=== PATIENT | female | born 1935 | race Caucasian/White ===

== ENCOUNTER 2018-05-29 17:50 | Inpatient (IN) | payer MEDICARE ==
[2018-05-29] MEDS ORDERED: SODIUM CHLORIDE 0.9% 1,000 ML IV STA (18:09)
[2018-05-29] MEDS ORDERED: SODIUM CHLORIDE 0.9% 500 ML 500 ML IV STA (18:09)
--- NOTE | 2018-05-29 18:29 | ED ---
Recheck HPI - General Chief Complaint: Recheck/Abnormal Lab/Rx Stated Complaint: Abnormal labs Time Seen by Provider: 05/29/18 17:52 Source: EMS, RN notes reviewed, old records reviewed Mode of arrival: EMS Limitations: no limitations - History of Present Illness Initial Comments: This is an 83-year-old female the ER for evaluation she was essay for evaluation of severe weakness. Patient also presented for abnormal outpatient lab test. He had visiting physicians test lab tests and told him that showed low hemoglobin of 4. This is been a chronic issue for this patient. Patient's medical history long calm.. She denies any complaints aside from weakness decreased appetite and anorexia Complaint: abnormal lab (hemoglobin) -: unknown Returns Today for: Called Because of Abnormal Lab/Test Symptoms Since Prior Visit: no new symptoms Associated Symptoms: none Treatments Prior to Arrival: other (none) - Related Data Home Medications Medication Instructions Recorded Confirmed ALPRAZolam [Xanax] 0.25 mg PO TID 05/29/18 05/29/18 Aspirin [[place] Aspirin EC] 81 mg PO DAILY 05/29/18 05/29/18 Atorvastatin [Lipitor] 80 mg PO HS 05/29/18 05/29/18 Citalopram Hydrobromide 40 mg PO DAILY 05/29/18 05/29/18 [Citalopram HBr] Diphenox-Atrop 2.5-0.025 mg 1 tab PO TID 05/29/18 05/29/18 [Lomotil] Donepezil [Aricept] 5 mg PO HS 05/29/18 05/29/18 Donepezil [Aricept] 10 mg PO HS 05/29/18 05/29/18 Ipratropium-Albuterol Nebulize 3 ml INHALATION RT-QID PRN 05/29/18 05/29/18 [Duoneb 0.5 mg-3 mg/3 ml Soln] Isosorbide Mononitrate ER [Imdur] 30 mg PO DAILY 05/29/18 05/29/18 Lisinopril-Hctz 10-12.5 mg 1 tab PO DAILY 05/29/18 05/29/18 [Zestoretic 10-12.5] Megestrol [Megace] 40 mg PO BID 05/29/18 05/29/18 Metoprolol Succinate (ER) [Toprol 25 mg PO DAILY 05/29/18 05/29/18 Xl] Pantoprazole Sodium [Protonix] 40 mg PO DAILY 05/29/18 05/29/18 Primidone [Mysoline] 50 mg PO TID 05/29/18 05/29/18 amLODIPine [Norvasc] 10 mg PO DAILY 05/29/18 05/29/18 predniSONE 5 mg PO DAILY 05/29/18 05/29/18 Allergies Allergy/AdvReac Type Severity Reaction Status Date / Time codeine Allergy Unknown Verified 05/29/18 18:27 Review of Systems ROS Statement: Those systems with pertinent positive or pertinent negative responses have been documented in the HPI. ROS Other: All systems not noted in ROS Statement are negative. Past Medical History History of Any Multi-Drug Resistant Organisms: None Reported Past Psychological History: No Psychological Hx Reported Smoking Status: Never smoker Past Alcohol Use History: None Reported Past Drug Use History: None Reported General Exam Limitations: no limitations General appearance: alert, lethargic, in distress Head exam: Present: atraumatic, normocephalic, normal inspection Eye exam: Present: normal appearance, PERRL, EOMI. Absent: scleral icterus, conjunctival injection, periorbital swelling ENT exam: Present: normal exam, mucous membranes moist Neck exam: Present: normal inspection. Absent: tenderness, meningismus, lymphadenopathy Respiratory exam: Present: normal lung sounds bilaterally. Absent: respiratory distress, wheezes, rales, rhonchi, stridor Cardiovascular Exam: Present: regular rate, normal rhythm, normal heart sounds. Absent: systolic murmur, diastolic murmur, rubs, gallop, clicks GI/Abdominal exam: Present: soft, normal bowel sounds. Absent: distended, tenderness, guarding, rebound, rigid Extremities exam: Present: normal inspection, full ROM, normal capillary refill. Absent: tenderness, pedal edema, joint swelling, calf tenderness Back exam: Present: normal inspection Neurological exam: Present: alert, oriented X3, CN II-XII intact Psychiatric exam: Present: normal affect, normal mood Skin exam: Present: warm, dry, intact, normal color. Absent: rash Course Vital Signs 05/29/18 05/29/18 17:52 18:13 Temperature 97.8 F Pulse Rate 68 Respiratory 15 16 Rate Blood Pressure 111/39 O2 Sat by Pulse 98 Oximetry - Reevaluation(s) Reevaluation #1: 05/29/18 19:08 Medical record is reviewed Reevaluation #2: 05/29/18 19:08 Patient has significant anemia probably from chronic diseases she denies vomiting blood or blood in her stool. We'll admit for significant transfusion Medical Decision Making - Medical Decision Making 83 female the ER for evaluation, significant anemia we'll admit for transfusion - Lab Data Result diagrams: 05/29/18 18:00 05/29/18 18:00 Lab Results 05/29/18 05/29/18 05/29/18 Range/Units 18:00 18:00 18:00 WBC 9.5 (3.8-10.6) k/uL RBC 1.50 L (3.80-5.40) m/uL Hgb 4.2 L* (11.4-16.0) gm/dL Hct 15.5 L* (34.0-46.0) % MCV 103.4 H (80.0-100.0) fL MCH 28.1 (25.0-35.0) pg MCHC 27.1 L (31.0-37.0) g/dL RDW 16.9 H (11.5-15.5) % Plt Count 400 (150-450) k/uL Neutrophils % 92 % Lymphocytes % 3 % Monocytes % 3 % Eosinophils % 0 % Basophils % 0 % Neutrophils # 8.8 H (1.3-7.7) k/uL Lymphocytes # 0.3 L (1.0-4.8) k/uL Monocytes # 0.3 (0-1.0) k/uL Eosinophils # 0.0 (0-0.7) k/uL Basophils # 0.0 (0-0.2) k/uL Hypochromasia Marked Anisocytosis Slight Macrocytosis Moderate PT (9.0-12.0) sec INR (<1.2) APTT (22.0-30.0) sec Sodium 142 (137-145) mmol/L Potassium 4.4 (3.5-5.1) mmol/L Chloride 119 H (98-107) mmol/L Carbon Dioxide 20 L (22-30) mmol/L Anion Gap 3 mmol/L BUN 60 H (7-17) mg/dL Creatinine 1.59 H (0.52-1.04) mg/dL Est GFR (CKD-EPI)AfAm 35 (>60 ml/min/1.73 sqM) Est GFR (CKD-EPI)NonAf 30 (>60 ml/min/1.73 sqM) Glucose 124 H (74-99) mg/dL Plasma Lactic Acid [place] (0.7-2.0) mmol/L Calcium 7.6 L (8.4-10.2) mg/dL Magnesium 2.6 H (1.6-2.3) mg/dL Total Bilirubin 0.2 (0.2-1.3) mg/dL AST 51 H (14-36) U/L ALT 52 (9-52) U/L Alkaline Phosphatase 78 (38-126) U/L Total Creatine Kinase 437 H (30-135) U/L Total Protein 4.4 L (6.3-8.2) g/dL Albumin 2.0 L (3.5-5.0) g/dL Lipase 130 (23-300) U/L 05/29/18 05/29/18 Range/Units 18:00 18:00 WBC (3.8-10.6) k/uL RBC (3.80-5.40) m/uL Hgb (11.4-16.0) gm/dL Hct (34.0-46.0) % MCV (80.0-100.0) fL MCH (25.0-35.0) pg MCHC (31.0-37.0) g/dL RDW (11.5-15.5) % Plt Count (150-450) k/uL Neutrophils % % Lymphocytes % % Monocytes % % Eosinophils % % Basophils % % Neutrophils # (1.3-7.7) k/uL Lymphocytes # (1.0-4.8) k/uL Monocytes # (0-1.0) k/uL Eosinophils # (0-0.7) k/uL Basophils # (0-0.2) k/uL Hypochromasia Anisocytosis Macrocytosis PT 10.7 (9.0-12.0) sec INR 1.0 (<1.2) APTT 19.3 L (22.0-30.0) sec Sodium (137-145) mmol/L Potassium (3.5-5.1) mmol/L Chloride (98-107) mmol/L Carbon Dioxide (22-30) mmol/L Anion Gap mmol/L BUN (7-17) mg/dL Creatinine (0.52-1.04) mg/dL Est GFR (CKD-EPI)AfAm (>60 ml/min/1.73 sqM) Est GFR (CKD-EPI)NonAf (>60 ml/min/1.73 sqM) Glucose (74-99) mg/dL Plasma Lactic Acid [place] 1.3 (0.7-2.0) mmol/L Calcium (8.4-10.2) mg/dL Magnesium (1.6-2.3) mg/dL Total Bilirubin (0.2-1.3) mg/dL AST (14-36) U/L ALT (9-52) U/L Alkaline Phosphatase (38-126) U/L Total Creatine Kinase (30-135) U/L Total Protein (6.3-8.2) g/dL Albumin (3.5-5.0) g/dL Lipase (23-300) U/L Disposition Clinical Impression: Anemia Disposition: ADMITTED IP TO THIS HOSP Condition: Serious Is patient prescribed a controlled substance at d/c from ED?: No Referrals: Walter Saul MD [Primary Care Provider] - 1-2 days
[2018-05-29 18:31] LABS: Calcium 7.6 mg/dL (8.4-10.2); Magnesium 2.6 mg/dL (1.6-2.3); Potassium 4.4 mmol/L (3.5-5.1); Total Bilirubin 0.2 mg/dL (0.2-1.3); Total Protein 4.4 g/dL (6.3-8.2)
[2018-05-29 18:32] LABS: Anisocytosis Slight; Basophils % (A) 0 %; Eosinophils % (A) 0 %; Hypochromasia Marked; Lymphocytes # (A) 0.3 k/uL (1.0-4.8); Lymphocytes % (A) 3 %; MCH 28.1 pg (25.0-35.0); MCHC 27.1 g/dL (31.0-37.0); MCV 103.4 fL (80.0-100.0); Macrocytosis Moderate; Mean Platelet Volume 6.8; Monocytes # (A) 0.3 k/uL (0-1.0); Monocytes % (A) 3 %; Neutrophils # (A) 8.8 k/uL (1.3-7.7); Neutrophils % (A) 92 %; Platelet Count 400 k/uL (150-450); RDW 16.9 % (11.5-15.5); WBC 9.5 k/uL (3.8-10.6)
[2018-05-29 18:37] LABS: HCT 15.5 % (34.0-46.0); HGB 4.2 gm/dL (11.4-16.0)
[2018-05-29 18:42] LABS: Prothrombin Time 10.7 sec (9.0-12.0)
[2018-05-29 18:45] LABS: Creatine Kinase MB 3.9 ng/mL (0.0-2.4)
[2018-05-29 18:48] LABS: Partial Thromboplastin Time 19.3 sec (22.0-30.0)
[2018-05-29 19:23] LABS: Troponin I 0.056 ng/mL (0.000-0.034)
--- NOTE | 2018-05-29 21:07 | P.HPIM ---
History of Present Illness H&P Date: 05/29/18 The patient is an 83 yo F with PMH of emphysema, dementia, chronic anemia (on chronic iron supplementation), breast and cervical ca 15 years ago s/p treatment , chronic tremors, and HLD was brought in to the ED by her family due to lethargy and appearing pale. As per the daughters at the bedside, the patient was able to ambulate with some assistance up until a month ago. She then had a gradual decline in her functional status and has essentially been bedbound over the past few weeks (and has developed a sacral ulcer). She previously had mild dementia but has also progressed with worsening mental status and now only oriented to place. Family also noted that the patient appeared paler than usual. They endorsed a long-standing history of anemia and that the patient used to get transfusions every month up until a year ago when she missed some appointments and then lost follow-up. Family noted that the cause of the anemia was never fully realized despite a comprehensive workup. The family otherwise denied the patient endorsing any complaints. The patient noted that she doesn't feel well but was free of active complaints and denied any chest pain, SOB, nausea, vomiting, abdominal pain, or vaginal bleeding. The daughters endorsed chronically black stools which they attributed to the iron supplementation but denied noticing any vaginal bleeding. In the ED, the patient underwent a comprehensive w/u with CBC showing Hgb 4.2, Hct 15.5 and patelets 400. Cr was 1.59, BUN 60, and Troponin 0.056. In the ED the patient received bolus of IVFs and 3 U of pRBCs were ordered. Review of Systems Pertinent positives and negatives as discussed in HPI, a complete review of systems was performed and all other systems are negative. Past Medical History History of Any Multi-Drug Resistant Organisms: None Reported Past Psychological History: No Psychological Hx Reported Smoking Status: Never smoker Past Alcohol Use History: None Reported Past Drug Use History: None Reported Medications and Allergies Home Medications Medication Instructions Recorded Confirmed Type ALPRAZolam [Xanax] 0.25 mg PO TID 05/29/18 05/29/18 History Aspirin [[place] Aspirin EC] 81 mg PO DAILY 05/29/18 05/29/18 History Atorvastatin [Lipitor] 80 mg PO HS 05/29/18 05/29/18 History Citalopram Hydrobromide 40 mg PO DAILY 05/29/18 05/29/18 History [Citalopram HBr] Diphenox-Atrop 2.5-0.025 mg 1 tab PO TID 05/29/18 05/29/18 History [Lomotil] Donepezil [Aricept] 5 mg PO HS 05/29/18 05/29/18 History Donepezil [Aricept] 10 mg PO HS 05/29/18 05/29/18 History Ipratropium-Albuterol Nebulize 3 ml INHALATION RT-QID PRN 05/29/18 05/29/18 History [Duoneb 0.5 mg-3 mg/3 ml Soln] Isosorbide Mononitrate ER [Imdur] 30 mg PO DAILY 05/29/18 05/29/18 History Lisinopril-Hctz 10-12.5 mg 1 tab PO DAILY 05/29/18 05/29/18 History [Zestoretic 10-12.5] Megestrol [Megace] 40 mg PO BID 05/29/18 05/29/18 History Metoprolol Succinate (ER) [Toprol 25 mg PO DAILY 05/29/18 05/29/18 History Xl] Pantoprazole Sodium [Protonix] 40 mg PO DAILY 05/29/18 05/29/18 History Primidone [Mysoline] 50 mg PO TID 05/29/18 05/29/18 History amLODIPine [Norvasc] 10 mg PO DAILY 05/29/18 05/29/18 History predniSONE 5 mg PO DAILY 05/29/18 05/29/18 History Allergies Allergy/AdvReac Type Severity Reaction Status Date / Time codeine Allergy Unknown Verified 05/29/18 18:27 Physical Exam Vitals: Vital Signs Temp Pulse Resp BP Pulse Ox 05/29/18 20:15 67 16 119/50 100 05/29/18 18:13 16 05/29/18 18:00 111/39 90 L 05/29/18 17:52 97.8 F 68 15 111/39 98 Intake and Output 05/29/18 05/29/18 05/29/18 06:59 14:59 22:59 Other: Weight 38.102 kg General: [pale elderly F], [no distress], [appears at stated age], [cachectic] Derm: thin skin w/ multiple areas of echymosis over arms and legs, R posterior leg 3-4 cm area of oval hyperkeratosis w/ flaking, no erythema or warmth Head: [atraumatic], [normocephalic], [symmetric] Eyes: [EOMI], [no lid lag], [anicteric sclera], [pupils equal round reactive to light], pale conjunctiva ENT: [Nose and ears atraumatic], [no thrush], [no pharyngeal erythema] Neck: [No thyromegaly], [no cervical lymphadenopathy], [trachea midline], [ supple] Mouth: [no lip lesion], [mucus membranes dry] Cardiovascular: [S1S2 reg], [no murmur], [positive posterior tibial pulse bilateral], [no edema] Lungs: [CTA bilateral], [no rhonchi, no rales] , [no accessory muscle use] Abdominal: [soft], [ nontender to palpation], [no guarding], [no appreciable organomegaly], [normal bowel sounds] Ext: [muscle strength 4 out of 5 in all 4 extremities grossly], [no contractures ] Neuro: [ CN II-XI grossly intact], moving all extremities Psych: [Awake, believes she is in [facility], able to recognize and name daughters at bedside] Results CBC & Chem 7: 05/29/18 18:00 05/29/18 18:00 Labs: Abnormal Lab Results - Last 24 Hours (Table) 05/29/18 05/29/18 05/29/18 Range/Units 18:00 18:00 18:00 RBC 1.50 L (3.80-5.40) m/uL Hgb 4.2 L* (11.4-16.0) gm/dL Hct 15.5 L* (34.0-46.0) % MCV 103.4 H (80.0-100.0) fL MCHC 27.1 L (31.0-37.0) g/dL RDW 16.9 H (11.5-15.5) % Neutrophils # 8.8 H (1.3-7.7) k/uL Lymphocytes # 0.3 L (1.0-4.8) k/uL APTT (22.0-30.0) sec Chloride 119 H (98-107) mmol/L Carbon Dioxide 20 L (22-30) mmol/L BUN 60 H (7-17) mg/dL Creatinine 1.59 H (0.52-1.04) mg/dL Glucose 124 H (74-99) mg/dL Calcium 7.6 L (8.4-10.2) mg/dL Magnesium 2.6 H (1.6-2.3) mg/dL AST 51 H (14-36) U/L Total Creatine Kinase 437 H (30-135) U/L CK-MB (CK-2) 3.9 H (0.0-2.4) ng/mL Troponin I 0.056 H* (0.000-0.034) ng/mL Total Protein 4.4 L (6.3-8.2) g/dL Albumin 2.0 L (3.5-5.0) g/dL Crossmatch 05/29/18 05/29/18 Range/Units 18:00 18:00 RBC (3.80-5.40) m/uL Hgb (11.4-16.0) gm/dL Hct (34.0-46.0) % MCV (80.0-100.0) fL MCHC (31.0-37.0) g/dL RDW (11.5-15.5) % Neutrophils # (1.3-7.7) k/uL Lymphocytes # (1.0-4.8) k/uL APTT 19.3 L (22.0-30.0) sec Chloride (98-107) mmol/L Carbon Dioxide (22-30) mmol/L BUN (7-17) mg/dL Creatinine (0.52-1.04) mg/dL Glucose (74-99) mg/dL Calcium (8.4-10.2) mg/dL Magnesium (1.6-2.3) mg/dL AST (14-36) U/L Total Creatine Kinase (30-135) U/L CK-MB (CK-2) (0.0-2.4) ng/mL Troponin I (0.000-0.034) ng/mL Total Protein (6.3-8.2) g/dL Albumin (3.5-5.0) g/dL Crossmatch See Detail Assessment and Plan Plan: Severe macrocytic anemia, unknown etiology -In light of hx of chronic anemia and multiple transfusions, will obtain records from PMD in am (Dr Olivarez) -Pt ordered for 3 U of pRBCs. Will f/u CBC post-transfusions -Will hold off on further w/u pending records Cachexia -Dietary consult -High calorie diet -C/w Megestrol Troponin elevation -Likely secondary to severe anemia. Will obtain EKG. OUSMANE, pre-renal -Likely due to decreased oral intake and dehydration -C/w IVFs. Dietary consult. -F/u BMP Dementia -C/w Aricept COPD -Duonebs prn HTN -Currently normotensive. Will hold off. Resume as warranted. HLD -C/w Lipitor 80 mg ?CAD -- patient follows w/ Cardiology -Hold off on Aspirin and Toprol for now. No history of stents or cardiac surgery as per family. DVT//GI prophylaxis - IPCDs - No indication for GI prophylaxis The patient is admitted with an anticipated greater than 2 midnight stay for evaluation of severe anemia Surrogate decision-maker: Daughters, CODE STATUS: Full-code Discussed with: Daughters, Anticipated discharge date: 05/31/[address]: Home A total of 60 minutes was spent on the care of this complex patient more than 50 % of the time was spent in counseling and care coordination.
[2018-05-30 00:10] LABS: Anisocytosis Slight; Basophils % (A) 0 %; Eosinophils # (A) 0.1 k/uL (0-0.7); Eosinophils % (A) 1 %; Hypochromasia Marked; Lymphocytes # (A) 0.4 k/uL (1.0-4.8); Lymphocytes % (A) 4 %; MCH 29.8 pg (25.0-35.0); MCV 99.3 fL (80.0-100.0); Macrocytosis Slight; Mean Platelet Volume 6.9; Monocytes # (A) 0.3 k/uL (0-1.0); Monocytes % (A) 3 %; Neutrophils # (A) 9.3 k/uL (1.3-7.7); Neutrophils % (A) 90 %; Platelet Count 359 k/uL (150-450); Poikilocytosis Moderate; RBC 1.97 m/uL (3.80-5.40); RDW 16.1 % (11.5-15.5); WBC 10.3 k/uL (3.8-10.6)
[2018-05-30 00:19] LABS: HCT 19.5 % (34.0-46.0); HGB 5.9 gm/dL (11.4-16.0)
[2018-05-30 08:55] LABS: Basophils % (A) 0 %; Eosinophils # (A) 0.1 k/uL (0-0.7); Eosinophils % (A) 0 %; HCT 34.1 % (34.0-46.0); Hypochromasia Marked; Lymphocytes # (A) 0.3 k/uL (1.0-4.8); Lymphocytes % (A) 3 %; MCH 29.8 pg (25.0-35.0); MCV 96.1 fL (80.0-100.0); Mean Platelet Volume 7.1; Monocytes # (A) 0.3 k/uL (0-1.0); Monocytes % (A) 3 %; Neutrophils # (A) 10.3 k/uL (1.3-7.7); Neutrophils % (A) 93 %; Platelet Count 307 k/uL (150-450); Poikilocytosis Marked; RBC 3.55 m/uL (3.80-5.40); RDW 15.8 % (11.5-15.5); WBC 11.1 k/uL (3.8-10.6)
[2018-05-30 09:04] LABS: HGB 10.6 gm/dL (11.4-16.0)
[2018-05-30 09:12] LABS: Albumin 2.4 g/dL (3.5-5.0); Calcium 7.9 mg/dL (8.4-10.2); Magnesium 2.7 mg/dL (1.6-2.3); Phosphorus 4.2 mg/dL (2.5-4.5); Potassium 4.5 mmol/L (3.5-5.1); Total Bilirubin 0.7 mg/dL (0.2-1.3); Total Protein 4.9 g/dL (6.3-8.2)
[2018-05-30 10:24] LABS: Reticulocyte % 4.4 % (0.5-2.0)
[2018-05-30 11:28] VITALS: BMI 16.4
[2018-05-30 12:48] LABS: Appearance,Urine Cloudy (Clear); Bacteria,Urine Rare /hpf; Bilirubin,Urine Negative (Negative); Blood,Urine Trace (Negative); Color,Urine Yellow; Glucose,Urine (UA) Negative (Negative); Hyaline Casts,Urine 4 /lpf (0-2); Ketones,Urine Negative (Negative); Leukocyte Esterase,Urine Large (Negative); Mucus,Urine Rare /hpf; Nitrite,Urine Negative (Negative); Protein,Urine Trace (Negative); RBC,Urine 5 /hpf (0-5); Specific Gravity,Urine 1.013 (1.001-1.035); Squamous Epithelial Cell,Urine 16 /hpf (0-4); Urobilinogen,Urine <2.0 mg/dL (<2.0); WBC,Urine 28 /hpf (0-5)
--- NOTE | 2018-05-30 12:52 | CDI ---
Documentation Clarification Form Date: 05/30/2018 12:10:12 PM From: Shayy Panchal RN, CCDS Admit Date: 05/29/2018 7:09:00 PM Patient Name: Mitzi Lamar Visit Number: [id number] Discharge Date: ATTENTION: The Clinical Documentation Specialists (CDI) and [facility] Coding Staff appreciate your assistance in clarifying documentation. Please respond to the clarification below the line at the bottom and electronically sign. The CDI & [facility] Coding staff will review the response and follow-up if needed. Please note: Queries are made part of the Legal Health Record. If you have any questions, please contact the author of this message via ITS. Dr. Neri Mancini A Sacral ulcer was documented in the H/P and additional documentation is needed from the attending to accurately reflect the patient condition. History/Risk Factors: Dementia, Chronic anemia, Clinical Indicators: Your H/P has noted that patient decline in her functional status she has essentially been bedbound over the past few weeks and developed a sacral ulcer. She is noted to be incontinent and wear a diaper. She has cachexia with BMI 16.4 Location: Coccyx Wound description: [place], erythema hyperpigmentation, per nursing wound assessment stage II Treatment: Consults: Dietary consult Magic cups BID, monitor intake Wound care per protocol Elements for accurate and compliant documentation of an ulcer: *The location/laterality of the ulcer *Etiology (decubitus/pressure, diabetic, PVD) *Stage I-IV, Unstageable, Suspected Deep Tissue Injury (To the deepest stage ) *If the ulcer was present at admission (POA) or occurred after admission In your professional opinion, can you please clarify the diagnosis, location, laterality and whether present on admission (POA): Stage 1 Pressure/Decubitus Ulcer (intact skin, non-blanching redness of local area) Stage 2 Pressure/Decubitus Ulcer (Partial thickness, loss of dermis, pink wound bed) Stage 3 Pressure/Decubitus Ulcer (Full thickness tissue loss) Stage 4 Pressure/Decubitus Ulcer (Full thickness tissue loss with exposed bone, tendon, or muscle. May have slough or eschar present) Unstageable Other condition, please specify Unable to determine Please indicate etiology of pressure ulcer (if known). (Last Revision: February 2017) Sacral decubitus ulcer, unstageable, present on admission [facility]
--- NOTE | 2018-05-30 13:10 | CDI ---
Documentation Clarification Form Date: 05/30/18 From: Shayy Panchal RN, CCDS Admit Date: 05/29/2018 7:09:00 PM Patient Name: Mitzi Lamar Visit Number: [id number] Discharge Date: ATTENTION: The Clinical Documentation Specialists (CDI) and [facility] Coding Staff appreciate your assistance in clarifying documentation. Please respond to the clarification below the line at the bottom and electronically sign. The CDI & [facility] Coding staff will review the response and follow-up if needed. Please note: Queries are made part of the Legal Health Record. If you have any questions, please contact the author of this message via ITS. Dr. Neri Mancini Malnutrition has been documented in the dietitian consult and further clarification and documentation from the attending is needed. History/Risk Factors: Anemia, Dementia Clinical Indicators: Patient present with low Hgb 4.2 on admission and complaints of lethargy, weakness and poor appetite for 1-3 months. Her physical appearance is underweight with orbital, temporal fat loss Labs: Albumin 2.4 /Total Protein: 4.9 Current BMI: 16.4 Insufficient energy intake: Yes Weight Loss: Yes16 % BW in 2 months Loss of subcutaneous fat: Yes Decreased hand internal combustion engineer strength: Yes Treatment: Dietary Consult: Yes; diagnosis: malnutrition severe, acute Supplements: Magic cups BID Monitor PO intake Lab monitoring: In your professional opinion, can you please clarify if these findings signify one of the following conditions? Mild Protein-Calorie Malnutrition Moderate Protein-Calorie Malnutrition Severe Protein-Calorie Malnutrition Other condition, please specify Unable to determine (Last Revision: August 2017) Severe protein calorie malnutrition MTDD
--- NOTE | 2018-05-30 13:13 | P.CONS ---
History of Present Illness - Reason for Consult Consult date: 05/30/18 severe anemia Requesting physician: Quinten Carranza - Chief Complaint weakness, sob, hgb 4.2 - History of Present Illness Ms Lamar is a pleasant white female referred to us for pancytopenia, initially in 2011. She has had predominantly a normochromic, normocytic anemia with a mild thrombocyopenia and some leukopenia. We have lab work dating back to February 2011. At that time her hemoglobin was 10.2 with an MCV of 88.4. RDW was 14.5. Platelet count was 125 and the WBC was 5.3. She has not been back in our office since 2014. She presented to hospital via ambulance for increasing debility, on admission found to have hemoglobin of 4.2, she was transfused and an initial work-up completed. Her current hemoglobin is stable. 10.6. There is no overt signs of bleeding noted. Review of Systems ROS unobtainable: due to mental status Past Medical History Past Medical History: Cancer Additional Past Medical History / Comment(s): Frequent blood transfusions, chronic anemia, breast ca , right mastectomy History of Any Multi-Drug Resistant Organisms: None Reported Past Surgical History: Breast Surgery Additional Past Surgical History / Comment(s): rt mastectomy Past Anesthesia/Blood Transfusion Reactions: No Reported Reaction Past Psychological History: No Psychological Hx Reported Smoking Status: Never smoker Past Alcohol Use History: None Reported Past Drug Use History: None Reported - Past Family History Father Family Medical History: No Reported History Medications and Allergies Home Medications Medication Instructions Recorded Confirmed Type ALPRAZolam [Xanax] 0.25 mg PO TID 05/29/18 05/29/18 History Aspirin [[place] Aspirin EC] 81 mg PO DAILY 05/29/18 05/29/18 History Atorvastatin [Lipitor] 80 mg PO HS 05/29/18 05/29/18 History Citalopram Hydrobromide 40 mg PO DAILY 05/29/18 05/29/18 History [Citalopram HBr] Diphenox-Atrop 2.5-0.025 mg 1 tab PO TID 05/29/18 05/29/18 History [Lomotil] Donepezil [Aricept] 5 mg PO HS 05/29/18 05/29/18 History Donepezil [Aricept] 10 mg PO HS 05/29/18 05/29/18 History Ipratropium-Albuterol Nebulize 3 ml INHALATION RT-QID PRN 05/29/18 05/29/18 History [Duoneb 0.5 mg-3 mg/3 ml Soln] Isosorbide Mononitrate ER [Imdur] 30 mg PO DAILY 05/29/18 05/29/18 History Lisinopril-Hctz 10-12.5 mg 1 tab PO DAILY 05/29/18 05/29/18 History [Zestoretic 10-12.5] Megestrol [Megace] 40 mg PO BID 05/29/18 05/29/18 History Metoprolol Succinate (ER) [Toprol 25 mg PO DAILY 05/29/18 05/29/18 History Xl] Pantoprazole Sodium [Protonix] 40 mg PO DAILY 05/29/18 05/29/18 History Primidone [Mysoline] 50 mg PO TID 05/29/18 05/29/18 History amLODIPine [Norvasc] 10 mg PO DAILY 05/29/18 05/29/18 History predniSONE 5 mg PO DAILY 05/29/18 05/29/18 History Allergies Allergy/AdvReac Type Severity Reaction Status Date / Time codeine Allergy Unknown Verified 05/29/18 18:27 Physical Exam Vitals: Vital Signs Temp Pulse Pulse Resp BP BP Pulse Ox 05/30/18 05:56 98.1 F 65 144/62 05/30/18 05:24 98.3 F 60 20 146/65 100 05/30/18 03:43 98.1 F 68 135/78 05/30/18 03:13 98.2 F 65 132/78 05/30/18 02:59 98.3 F 64 128/82 05/30/18 02:49 98.1 F 62 126/78 05/30/18 00:35 98.7 F 59 L 12 124/48 100 05/29/18 23:46 98.3 F 61 16 135/49 99 05/29/18 22:20 98.3 F 130/46 100 05/29/18 21:30 98.4 F 121/44 100 05/29/18 21:15 98.6 F 61 16 121/44 100 05/29/18 21:00 98.3 F 82 22 157/69 100 05/29/18 20:15 67 16 119/50 100 05/29/18 18:13 16 05/29/18 18:00 111/39 90 L 05/29/18 17:52 97.8 F 68 15 111/39 98 Intake and Output 05/29/18 05/30/18 05/30/18 22:59 06:59 14:59 Intake Total 0 930 Balance 0 930 Intake: Blood Product 0 930 Rc As-1 Unit 310 [id number] Rc Pheresis 2 As3 Unit 0 310 [id number] Rc Pheresis As-3 Unit 310 [id number] Other: Voiding Method Diaper Incontinent # Voids 2 Weight 38.102 kg 38.102 kg - Constitutional Chronically ill weak General appearance: mild distress, thin - EENT Eyes: poor dentition ENT: hard of hearing, NA/AT, normal oropharynx - Neck Neck: rigidity - Respiratory Respiratory: bilateral: diminished, wheezing - Cardiovascular Rhythm: regularly irregular - Gastrointestinal General gastrointestinal: decreased bowel sounds, soft, tenderness - Integumentary sacral wound Integumentary: pale, ulcer - Neurologic inconsistent responses and following of commands - Musculoskeletal unable to ambulate Musculoskeletal: generalized weakness Results CBC & Chem 7: 05/30/18 07:17 05/30/18 07:17 Labs: Abnormal Lab Results - Last 24 Hours (Table) 05/29/18 05/29/18 05/29/18 Range/Units 18:00 18:00 18:00 WBC (3.8-10.6) k/uL RBC 1.50 L (3.80-5.40) m/uL Hgb 4.2 L* (11.4-16.0) gm/dL Hct 15.5 L* (34.0-46.0) % MCV 103.4 H (80.0-100.0) fL MCHC 27.1 L (31.0-37.0) g/dL RDW 16.9 H (11.5-15.5) % Neutrophils # 8.8 H (1.3-7.7) k/uL Lymphocytes # 0.3 L (1.0-4.8) k/uL Retic Count (0.5-2.0) % APTT (22.0-30.0) sec Chloride 119 H (98-107) mmol/L Carbon Dioxide 20 L (22-30) mmol/L BUN 60 H (7-17) mg/dL Creatinine 1.59 H (0.52-1.04) mg/dL Glucose 124 H (74-99) mg/dL Calcium 7.6 L (8.4-10.2) mg/dL Magnesium 2.6 H (1.6-2.3) mg/dL AST 51 H (14-36) U/L Total Creatine Kinase 437 H (30-135) U/L CK-MB (CK-2) 3.9 H (0.0-2.4) ng/mL Troponin I 0.056 H* (0.000-0.034) ng/mL Total Protein 4.4 L (6.3-8.2) g/dL Albumin 2.0 L (3.5-5.0) g/dL Crossmatch 05/29/18 05/29/18 05/30/18 Range/Units 18:00 18:00 00:00 WBC (3.8-10.6) k/uL RBC 1.97 L (3.80-5.40) m/uL Hgb 5.9 L* D (11.4-16.0) gm/dL Hct 19.5 L* (34.0-46.0) % MCV (80.0-100.0) fL MCHC 30.0 L (31.0-37.0) g/dL RDW 16.1 H (11.5-15.5) % Neutrophils # 9.3 H (1.3-7.7) k/uL Lymphocytes # 0.4 L (1.0-4.8) k/uL Retic Count (0.5-2.0) % APTT 19.3 L (22.0-30.0) sec Chloride (98-107) mmol/L Carbon Dioxide (22-30) mmol/L BUN (7-17) mg/dL Creatinine (0.52-1.04) mg/dL Glucose (74-99) mg/dL Calcium (8.4-10.2) mg/dL Magnesium (1.6-2.3) mg/dL AST (14-36) U/L Total Creatine Kinase (30-135) U/L CK-MB (CK-2) (0.0-2.4) ng/mL Troponin I (0.000-0.034) ng/mL Total Protein (6.3-8.2) g/dL Albumin (3.5-5.0) g/dL Crossmatch See Detail 05/30/18 05/30/18 05/30/18 Range/Units 07:17 07:17 07:17 WBC 11.1 H (3.8-10.6) k/uL RBC 3.55 L (3.80-5.40) m/uL Hgb 10.6 L D (11.4-16.0) gm/dL Hct (34.0-46.0) % MCV (80.0-100.0) fL MCHC (31.0-37.0) g/dL RDW 15.8 H (11.5-15.5) % Neutrophils # 10.3 H (1.3-7.7) k/uL Lymphocytes # 0.3 L (1.0-4.8) k/uL Retic Count (0.5-2.0) % APTT (22.0-30.0) sec Chloride 117 H (98-107) mmol/L Carbon Dioxide (22-30) mmol/L BUN 53 H (7-17) mg/dL Creatinine 1.60 H (0.52-1.04) mg/dL Glucose (74-99) mg/dL Calcium 7.9 L (8.4-10.2) mg/dL Magnesium 2.7 H (1.6-2.3) mg/dL AST 53 H (14-36) U/L Total Creatine Kinase (30-135) U/L CK-MB (CK-2) (0.0-2.4) ng/mL Troponin I 0.100 H* (0.000-0.034) ng/mL Total Protein 4.9 L (6.3-8.2) g/dL Albumin 2.4 L (3.5-5.0) g/dL Crossmatch 05/30/18 Range/Units 07:17 WBC (3.8-10.6) k/uL RBC (3.80-5.40) m/uL Hgb (11.4-16.0) gm/dL Hct (34.0-46.0) % MCV (80.0-100.0) fL MCHC (31.0-37.0) g/dL RDW (11.5-15.5) % Neutrophils # (1.3-7.7) k/uL Lymphocytes # (1.0-4.8) k/uL Retic Count 4.4 H (0.5-2.0) % APTT (22.0-30.0) sec Chloride (98-107) mmol/L Carbon Dioxide (22-30) mmol/L BUN (7-17) mg/dL Creatinine (0.52-1.04) mg/dL Glucose (74-99) mg/dL Calcium (8.4-10.2) mg/dL Magnesium (1.6-2.3) mg/dL AST (14-36) U/L Total Creatine Kinase (30-135) U/L CK-MB (CK-2) (0.0-2.4) ng/mL Troponin I (0.000-0.034) ng/mL Total Protein (6.3-8.2) g/dL Albumin (3.5-5.0) g/dL Crossmatch Assessment and Plan Plan: Assessment and recommendations: 1. Severe macrocytic anemia: - no intervention today as her hgb has recovered 2. Persistent Debility - component of failure to thrive underlying Dementia 3. Hx: Pancytopenia: known hx mild splenomegaly. - The differential, with the negative w/u includes marrow suppression from medication and/or early MDS and/or mild splenic sequestration. No further intervention would be needed in either of these situations as long remained counts are in a safe range. Recommendations: - I will further work-up anemia, as likely a nutritional, failure to thrive component. - I rec further work-up for underlying acute inflammation with singleton cultures ( Chest Xray, BCx2, UA/C+S), will defer to attending - Will follow and supp if needed.
[2018-05-30] MEDS ORDERED: SODIUM CHLORIDE 0.45% 1,000 ML IV SCH (13:30)
--- NOTE | 2018-05-30 14:35 | P.PN ---
Subjective The chart was reviewed. Spoke with patient's daughter. Patient has a history of long-standing anemia with iron infusions. No particular etiology provided. Last infusion was about a year ago. Patient also has history of chronic diarrhea apparently no reason was found. She is history of advanced COPD with chronic prednisone. History of dementia. Over the last 1 month patient showing some progressive decline in her mentation is fatigue generalized weakness and not feeling well. Chart review showed hemoglobin of 4. Elevated troponin. Elevated creatinine. Per nursing staff patient had decreased urine output urinating only once. We' ll check postvoiding residual was 347. Patient herself only states that she's feeling short of breath but denies any focal pain or discomfort. Review of system was attempted but limited since patient seems very fatigue and slow to answer Objective - Vital Signs Vital signs: Vital Signs Temp 98.1 F 05/30/18 05:56 Pulse 65 05/30/18 05:56 Resp 20 05/30/18 05:24 BP 144/62 05/30/18 05:56 Pulse Ox 100 05/30/18 05:24 Intake & Output 05/29/18 05/30/18 05/30/18 18:59 06:59 18:59 Intake Total 930 100 Balance 930 100 Weight 38.102 kg 38.102 kg Intake: Blood Product 930 Rc As-1 Unit 310 [id number] Rc Pheresis 2 As3 Unit 310 [id number] Rc Pheresis As-3 Unit 310 [id number] Other 100 Other: Voiding Method Diaper Incontinent # Voids 2 2 - Exam Vital Signs: I have reviewed the vital signs. GENERAL: Malnourished frail old lady, no apparent distress, appears tired Eyes: PERRL, extraoculry movements intact, clear conjunctiva Head: : Atraumatic external nose and ears, oropharyngeal mucosa is moist without lesions or exudates Neck: Symmetric, trachea midline, No thyromegaly, no masses or neck vain pulsation, no neck rigidity CVS: +S1/S2, No murmurs or gallops. Peripheral pulses 2+ and equal in all extremities. RESP: Unlabored respiratory effort. Breath sounds are diminished but they are completely absent in the right base few crackles in the left base Abdomen: Bowel sounds present in all 4 quadrants, Soft to palpation, Nontender/ Nondistended, No hepatosplenomegaly, no hernias or masses, no CVA tnderness Musculoskeletal: Extremities w/o deformity, No cyanosis or clubbing, no joint swelling Skin: Warm, Dry. No rashes or lesions Neuro: child nutrition director II-XII grossly intact, motor strenght 5/5 i upper and lower extremities appear to be somewhat weaker but no clonus no Babinski DTRs are diminished Psych: Awake, Alert, & Oriented (AAO) x3 - Labs CBC & Chem 7: 05/30/18 07:17 05/30/18 07:17 Labs: Abnormal Lab Results - Last 24 Hours (Table) 05/29/18 05/29/18 05/29/18 Range/Units 18:00 18:00 18:00 WBC (3.8-10.6) k/uL RBC 1.50 L (3.80-5.40) m/uL Hgb 4.2 L* (11.4-16.0) gm/dL Hct 15.5 L* (34.0-46.0) % MCV 103.4 H (80.0-100.0) fL MCHC 27.1 L (31.0-37.0) g/dL RDW 16.9 H (11.5-15.5) % Neutrophils # 8.8 H (1.3-7.7) k/uL Lymphocytes # 0.3 L (1.0-4.8) k/uL Retic Count (0.5-2.0) % APTT (22.0-30.0) sec Chloride 119 H (98-107) mmol/L Carbon Dioxide 20 L (22-30) mmol/L BUN 60 H (7-17) mg/dL Creatinine 1.59 H (0.52-1.04) mg/dL Glucose 124 H (74-99) mg/dL Calcium 7.6 L (8.4-10.2) mg/dL Magnesium 2.6 H (1.6-2.3) mg/dL AST 51 H (14-36) U/L Total Creatine Kinase 437 H (30-135) U/L CK-MB (CK-2) 3.9 H (0.0-2.4) ng/mL Troponin I 0.056 H* (0.000-0.034) ng/mL Total Protein 4.4 L (6.3-8.2) g/dL Albumin 2.0 L (3.5-5.0) g/dL Urine Appearance (Clear) Urine Protein (Negative) Urine Blood (Negative) Ur Leukocyte Esterase (Negative) Urine WBC (0-5) /hpf Ur Squamous Epith Cells (0-4) /hpf Urine Bacteria (None) /hpf Hyaline Casts (0-2) /lpf Urine Mucus (None) /hpf Crossmatch 05/29/18 05/29/18 05/30/18 Range/Units 18:00 18:00 00:00 WBC (3.8-10.6) k/uL RBC 1.97 L (3.80-5.40) m/uL Hgb 5.9 L* D (11.4-16.0) gm/dL Hct 19.5 L* (34.0-46.0) % MCV (80.0-100.0) fL MCHC 30.0 L (31.0-37.0) g/dL RDW 16.1 H (11.5-15.5) % Neutrophils # 9.3 H (1.3-7.7) k/uL Lymphocytes # 0.4 L (1.0-4.8) k/uL Retic Count (0.5-2.0) % APTT 19.3 L (22.0-30.0) sec Chloride (98-107) mmol/L Carbon Dioxide (22-30) mmol/L BUN (7-17) mg/dL Creatinine (0.52-1.04) mg/dL Glucose (74-99) mg/dL Calcium (8.4-10.2) mg/dL Magnesium (1.6-2.3) mg/dL AST (14-36) U/L Total Creatine Kinase (30-135) U/L CK-MB (CK-2) (0.0-2.4) ng/mL Troponin I (0.000-0.034) ng/mL Total Protein (6.3-8.2) g/dL Albumin (3.5-5.0) g/dL Urine Appearance (Clear) Urine Protein (Negative) Urine Blood (Negative) Ur Leukocyte Esterase (Negative) Urine WBC (0-5) /hpf Ur Squamous Epith Cells (0-4) /hpf Urine Bacteria (None) /hpf Hyaline Casts (0-2) /lpf Urine Mucus (None) /hpf Crossmatch See Detail 05/30/18 05/30/18 05/30/18 Range/Units 07:17 07:17 07:17 WBC 11.1 H (3.8-10.6) k/uL RBC 3.55 L (3.80-5.40) m/uL Hgb 10.6 L D (11.4-16.0) gm/dL Hct (34.0-46.0) % MCV (80.0-100.0) fL MCHC (31.0-37.0) g/dL RDW 15.8 H (11.5-15.5) % Neutrophils # 10.3 H (1.3-7.7) k/uL Lymphocytes # 0.3 L (1.0-4.8) k/uL Retic Count (0.5-2.0) % APTT (22.0-30.0) sec Chloride 117 H (98-107) mmol/L Carbon Dioxide (22-30) mmol/L BUN 53 H (7-17) mg/dL Creatinine 1.60 H (0.52-1.04) mg/dL Glucose (74-99) mg/dL Calcium 7.9 L (8.4-10.2) mg/dL Magnesium 2.7 H (1.6-2.3) mg/dL AST 53 H (14-36) U/L Total Creatine Kinase (30-135) U/L CK-MB (CK-2) (0.0-2.4) ng/mL Troponin I 0.100 H* (0.000-0.034) ng/mL Total Protein 4.9 L (6.3-8.2) g/dL Albumin 2.4 L (3.5-5.0) g/dL Urine Appearance (Clear) Urine Protein (Negative) Urine Blood (Negative) Ur Leukocyte Esterase (Negative) Urine WBC (0-5) /hpf Ur Squamous Epith Cells (0-4) /hpf Urine Bacteria (None) /hpf Hyaline Casts (0-2) /lpf Urine Mucus (None) /hpf Crossmatch 05/30/18 05/30/18 Range/Units 07:17 11:58 WBC (3.8-10.6) k/uL RBC (3.80-5.40) m/uL Hgb (11.4-16.0) gm/dL Hct (34.0-46.0) % MCV (80.0-100.0) fL MCHC (31.0-37.0) g/dL RDW (11.5-15.5) % Neutrophils # (1.3-7.7) k/uL Lymphocytes # (1.0-4.8) k/uL Retic Count 4.4 H (0.5-2.0) % APTT (22.0-30.0) sec Chloride (98-107) mmol/L Carbon Dioxide (22-30) mmol/L BUN (7-17) mg/dL Creatinine (0.52-1.04) mg/dL Glucose (74-99) mg/dL Calcium (8.4-10.2) mg/dL Magnesium (1.6-2.3) mg/dL AST (14-36) U/L Total Creatine Kinase (30-135) U/L CK-MB (CK-2) (0.0-2.4) ng/mL Troponin I (0.000-0.034) ng/mL Total Protein (6.3-8.2) g/dL Albumin (3.5-5.0) g/dL Urine Appearance Cloudy H (Clear) Urine Protein Trace H (Negative) Urine Blood Trace H (Negative) Ur Leukocyte Esterase Large H (Negative) Urine WBC 28 H (0-5) /hpf Ur Squamous Epith Cells 16 H (0-4) /hpf Urine Bacteria Rare H (None) /hpf Hyaline Casts 4 H (0-2) /lpf Urine Mucus Rare H (None) /hpf Crossmatch Assessment and Plan Assessment: 1. Severe anemia status post 3 units PRBC No obvious bleeding clinically [place] will check stool for blood Hematology consult Appears the patient is transfusion dependent but no etiology provided Obtain hemolytic panel Check B12 MMA and folic acid Iron studies from original blood sample prior to transfusion Peripheral smear 2. Dementia and progressive weakness with diarrhea On exam patient skin has some hyperpigmentation of her arms Rule out vitamin deficiency in view of dementia diarrhea and dermatitis We'll check B1 and B2 folate B12 B6 copper and zinc levels Check TSH Check RPR Physical occupational therapy 3. Elevated troponin No significant changes on EKG Patient denies any chest pain we order echocardiogram and notified by communications tower technician the patient has severe insufficiency of multiple valves Pleural effusion noted on echo check chest x-ray Cardiology has been consulted 4. Chronic diarrhea Check infectious etiology Check stool fat Check zinc level check thiamine level Check stool for blood Check a small gap Celiac disease serology If all of this above is inconclusive May consider further workup if family interested with colonoscopy and EGD and maybe consider Whipple disease the patient does not have typical neurological findings on exam 5. Elevated creatinine Rule out acute kidney injury Rule out CKD Decreased urine output oliguria Electrolytes and acid bus status stable No overt signs of fluid overload Continue with IV fluids PVR of 370 Discussed with the nurse to allow some extra time for patient to urinate on her own versus later on trying to straight cath or even Richard catheter which we will try avoid if possible Nephrology consult 6. Shortness of breath Chronic Advanced COPD Restart home prednisone Chest x-ray for possible pleural effusion noted on echocardiogram Rule out pneumonia empyema 7. Physical severe debility Physical occupational therapy Check swallow studies Further workup based on the findings of above studies. Prognosis is extremely guarded as patient is very frail very malnourished lost all muscle mass. She is very debilitated. I discussed with her daughter regarding her oral condition. Recommended DO NOT RESUSCITATE and palliative evaluation with consideration of even hospice evaluation. We will follow-up with above results with family and further evaluate. Time with Patient: Greater than 30
[2018-05-30] MEDS ORDERED: DIPHENOX-ATROP 2.5-0.025 MG 1 EACH TAB PO PRN (14:36)
--- NOTE | 2018-05-30 14:55 | XR ---
EXAMINATION TYPE: XR chest 1V portable DATE OF EXAM: 05/30/2018 COMPARISON: 04/01/2018 HISTORY: Shortness of breath TECHNIQUE: Single frontal view of the chest is obtained. FINDINGS: Bilateral consolidation and pleural effusion with diffuse interstitial pattern. Somewhat n odular appearing density in the left upper lobe lobe. Sclerotic density overlying the proximal humeru s may be superficial. No pneumothorax. Tiny granuloma right upper lobe suspected. Underlying COPD not ed. Atherosclerotic change aorta. IMPRESSION: 1. Diffuse interstitial pattern with bilateral consolidation and pleural effusion. CHF favored over p neumonia correlate clinically. 2. Irregular 7 mm nodule left upper lobe short-term follow-up chest CT recommended.
[2018-05-30 15:45] LABS: Folate, Serum 4.5 ng/mL
[2018-05-30 16:10] LABS: Iron Saturation 65.37 (12.00-45.00)
[2018-05-30] MEDS: predniSONE 5 MG TAB PO SCH (18:09)
--- NOTE | 2018-05-30 18:16 | ECHOF ---
Referral Reason:elevated trop MEASUREMENTS -------- HEIGHT: 152.4 cm WEIGHT: 38.1 kg BP: RVIDd: 1.6 cm (< 3.3) IVSd: 0.8 cm (0.6 - 1.1) LVIDd: 4.6 cm (3.9 - 5.3) LVPWd: 0.9 cm (0.6 - 1.1) IVSs: 0.9 cm LVIDs: 3.7 cm LVPWs: 1.0 cm Ao Diam: 2.5 cm (2.0 - 3.7) AV Cusp: 2.0 cm (1.5 - 2.6) LA Diam: 3.8 cm (2.7 - 3.8) MV EXCURSION: 14.946 mm (> 18.000) MV EF SLOPE: 94 mm/s (70 - 150) EPSS: 1.0 cm MV E Brando: 1.10 m/s MV DecT: 234 ms MV A Brando: 0.66 m/s MV E/A Ratio: 1.67 AR PHT: 484 ms RAP: 5.00 mmHg RVSP: 27.95 mmHg FINDINGS -------- Sinus rhythm. This was a technically good study. The left ventricular size is normal. Left ventricular wall thickness is normal. Overall left vent ricular systolic function is mild-moderately impaired with, an EF between 40 - 45 %. Basal inferior LV wall motion is hypokinetic. antseptal and anterior segmets are hypokinetic. The right ventricle is normal in size and function. LA is moderately dilated 34-39 ml/m2 The right atrium is normal in size. Aortic valve is trileaflet and is mildly thickened. There is [id number] aortic regurgitatio n. The mitral valve leaflets are mildly thickened. Wblzlnno-[id number] mitral regurgitation is present. Mild tricuspid regurgitation present. The right ventricular systolic pressure, as measured by Doppl er, is 27.95mmHg. Pulmonic valve appears structurally normal. The aortic root size is normal. Normal inferior vena cava with normal inspiratory collapse consistent with estimated right atrial pre ssure of 5 mmHg. Large Pleural Effusion. CONCLUSIONS -------- 1. Sinus rhythm. 2. This was a technically good study. 3. The left ventricular size is normal. 4. Left ventricular wall thickness is normal. 5. Basal inferior LV wall motion is hypokinetic. 6. The right ventricle is normal in size and function. 7. LA is moderately dilated 34-39 ml/m2 8. The right atrium is normal in size. 9. Aortic valve is trileaflet and is mildly thickened. 10. The mitral valve leaflets are mildly thickened. 11. Zywvsnxs-[id number] mitral regurgitation is present. 12. Mild tricuspid regurgitation present. 13. The right ventricular systolic pressure, as measured by Doppler, is 27.95mmHg. 14. Pulmonic valve appears structurally normal. 15. The aortic root size is normal. 16. Normal inferior vena cava with normal inspiratory collapse consistent with estimated right atrial pressure of 5 mmHg. 17. Large Pleural Effusion. SALES REPRESENTATIVE [employer]: Kim Garcia RDCS
[2018-05-30 18:24] LABS: Anisocytosis Slight; HCT 34.7 % (34.0-46.0); Hypochromasia Marked; MCHC 31.5 g/dL (31.0-37.0); MCV 95.1 fL (80.0-100.0); Mean Platelet Volume 6.9; Platelet Count 315 k/uL (150-450); Poikilocytosis Marked; RBC 3.65 m/uL (3.80-5.40); RDW 16.1 % (11.5-15.5)
[2018-05-30] MEDS: DONEPEZIL 5 MG TAB PO SCH (21:59)
[2018-05-30] MEDS: ATORVASTATIN 80 MG TAB PO SCH (21:59)
[2018-05-30 23:36] LABS: Anisocytosis Slight; HCT 35.4 % (34.0-46.0); HGB 10.9 gm/dL (11.4-16.0); Hypochromasia Marked; MCH 29.4 pg (25.0-35.0); MCHC 30.7 g/dL (31.0-37.0); MCV 95.7 fL (80.0-100.0); Mean Platelet Volume 6.6; Platelet Count 321 k/uL (150-450); Poikilocytosis Marked; RBC 3.69 m/uL (3.80-5.40); RDW 16.1 % (11.5-15.5); WBC 12.1 k/uL (3.8-10.6)
[2018-05-31] MEDS: METOPROLOL SUCCINATE (ER) 25 MG TAB.ER.24H PO SCH (07:58)
[2018-05-31] MEDS: predniSONE 5 MG TAB PO SCH (07:58)
[2018-05-31 08:20] LABS: Calcium 7.5 mg/dL (8.4-10.2); Potassium 4.4 mmol/L (3.5-5.1)
[2018-05-31 08:26] LABS: Anisocytosis Slight; HCT 35.6 % (34.0-46.0); HGB 11.1 gm/dL (11.4-16.0); Hypochromasia Marked; MCH 29.7 pg (25.0-35.0); MCHC 31.1 g/dL (31.0-37.0); MCV 95.5 fL (80.0-100.0); Mean Platelet Volume 6.5; Platelet Count 351 k/uL (150-450); Poikilocytosis Marked; RBC 3.73 m/uL (3.80-5.40)
--- NOTE | 2018-05-31 10:17 | P.PN ---
Subjective Summary: This is a 83-year-old female who has history of very advanced COPD and dementia residing with her and son and who was brought in due to worsening of her mentation, dehydration and generalized weakness. It was found that she have hemoglobin of 4 and she was transfused 3 units. After that her hemoglobin stabbing lysed and the range 10-11. Patient has multiple medical problems and she is very poor functional state and malnourished. She has history of chronic dementia and iron infusions in the past in outside institution with last treatment about one year ago. Daughter was not able to explain the patient was ever diagnosed with any particular problem. She does not didn't have any of his signs of bleeding nor any GI bleeding in the past was reported. She also is quite malnourished with lots of weight loss. Advanced COPD. Chronic renal disease. Possible aspiration. Elevated troponin severe MR. Chronic diarrhea Interval history: Today since patient been doing slightly better mentation sheehan. She appears very tired and fatigued but she is awake and alert she knows and she is in the hospital and she knows the month. She follows commands promptly and answers questions appropriately. She prefers to be left alone that she feels very tired. She does have some mild shortness of breath but she is not in any distress and symptoms that to be on baseline. There is no nuchal coughing or expectoration. Patient denies any focal pain nausea vomiting abdominal pain. She did not have any diarrhea apparently this morning. She has extensive blood work ordered and so far her iron studies have been decent and she has somewhat low folate. Multiple blood work orders still pending Echo showed preserved EF and severe MR. Large pleural effusion. Chest x-ray showed some infiltrative changes in both bases in my personal opinion suspicious for aspiration. Patient been on IV fluids due to decreased urine output overnight and tolerated that well with improvement in urine output. REVIEW OF SYSTEMS: CONSTITUTIONAL: No fever or chills HEENT: No changes in vision or voice CARDIOVASCULAR: no chest pain or abnormal heart beats, or any swelling in ankles or feet. RESPIRATORY: As per HPI GASTROINTESTINAL: No abdominal pain, no nausea no vomiting no constipation or diarrhea GENITOURINARY: no any urinary urgency, frequency or burning, and there has been no blood in her urine. no flank pain. MUSCULOSKELETAL: She notes full range of motion of all her joints without pain or swelling. NEUROLOGICAL: , no headache. no vision changes, or fainting. No numbness or tingling. Objective - Vital Signs Vital signs: Vital Signs Temp 97.7 F 05/31/18 05:25 Pulse 67 05/31/18 08:00 Resp 16 05/31/18 08:00 BP 120/57 05/31/18 05:25 Pulse Ox 94 L 05/31/18 05:25 Intake & Output 05/30/18 05/31/18 05/31/18 18:59 06:59 18:59 Intake Total 100 580 Output Total 100 Balance 0 580 Weight 38.102 kg Intake: Intake, IV Titration 500 Amount Sodium Chloride 0.45% 1, 500 000 ml @ 75 mls/hr IV . [id number] [facility] Rx#:[id number] Oral 80 Other 100 Output: Urine 100 Other: Voiding Method Diaper Bedpan Bedpan Incontinent Diaper Diaper Incontinent Incontinent # Voids 2 2 - Exam Vital Signs: I have reviewed the vital signs. GENERAL: Malnourished frail old lady, very frail emaciated no apparent distress , appears tired Eyes: PERRL, extraoculry movements intact, clear conjunctiva Head: : Atraumatic external nose and ears, oropharyngeal mucosa is moist without lesions or exudates Neck: Symmetric, trachea midline, No thyromegaly, no masses or neck vain pulsation, no neck rigidity CVS: +S1/S2, No murmurs or gallops. Peripheral pulses 2+ and equal in all extremities. RESP: Unlabored respiratory effort. Breath sounds are diminished but they are completely absent in the right base few crackles in the left base Abdomen: Bowel sounds present in all 4 quadrants, Soft to palpation, Nontender/ Nondistended, No hepatosplenomegaly, no hernias or masses, no CVA tnderness Musculoskeletal: Extremities w/o deformity, No cyanosis or clubbing, no joint swelling she has sacral ulcer Skin: Warm, Dry. 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, motor strenght 5/5 i upper and lower extremities appear to be somewhat weaker but no clonus no Babinski DTRs are diminished Psych: She is tired and relatively slow to respond but she is definitely awake and alert and answers questions appropriately nose the month and location - Labs CBC & Chem 7: 05/31/18 07:23 05/31/18 07:23 Labs: Abnormal Lab Results - Last 24 Hours (Table) 05/30/18 05/30/18 05/30/18 Range/Units 07:17 07:17 11:58 WBC (3.8-10.6) k/uL RBC (3.80-5.40) m/uL Hgb (11.4-16.0) gm/dL MCHC (31.0-37.0) g/dL RDW (11.5-15.5) % Retic Count 4.4 H (0.5-2.0) % Chloride (98-107) mmol/L Carbon Dioxide (22-30) mmol/L BUN (7-17) mg/dL Creatinine (0.52-1.04) mg/dL Calcium (8.4-10.2) mg/dL TIBC 205 L (228-460) ug/dL Iron Saturation 65.37 H (12.00-45.00) Troponin I (0.000-0.034) ng/mL Urine Appearance Cloudy H (Clear) Urine Protein Trace H (Negative) Urine Blood Trace H (Negative) Ur Leukocyte Esterase Large H (Negative) Urine WBC 28 H (0-5) /hpf Ur Squamous Epith Cells 16 H (0-4) /hpf Urine Bacteria Rare H (None) /hpf Hyaline Casts 4 H (0-2) /lpf Urine Mucus Rare H (None) /hpf 05/30/18 05/30/18 05/30/18 Range/Units 18:03 18:03 23:23 WBC 13.0 H 12.1 H (3.8-10.6) k/uL RBC 3.65 L 3.69 L (3.80-5.40) m/uL Hgb 11.0 L 10.9 L (11.4-16.0) gm/dL MCHC 30.7 L (31.0-37.0) g/dL RDW 16.1 H 16.1 H (11.5-15.5) % Retic Count (0.5-2.0) % Chloride (98-107) mmol/L Carbon Dioxide (22-30) mmol/L BUN (7-17) mg/dL Creatinine (0.52-1.04) mg/dL Calcium (8.4-10.2) mg/dL TIBC (228-460) ug/dL Iron Saturation (12.00-45.00) Troponin I 0.340 H* (0.000-0.034) ng/mL Urine Appearance (Clear) Urine Protein (Negative) Urine Blood (Negative) Ur Leukocyte Esterase (Negative) Urine WBC (0-5) /hpf Ur Squamous Epith Cells (0-4) /hpf Urine Bacteria (None) /hpf Hyaline Casts (0-2) /lpf Urine Mucus (None) /hpf 05/31/18 05/31/18 Range/Units 07:23 07:23 WBC 13.0 H (3.8-10.6) k/uL RBC 3.73 L (3.80-5.40) m/uL Hgb 11.1 L (11.4-16.0) gm/dL MCHC (31.0-37.0) g/dL RDW 16.0 H (11.5-15.5) % Retic Count (0.5-2.0) % Chloride 119 H (98-107) mmol/L Carbon Dioxide 19 L (22-30) mmol/L BUN 40 H (7-17) mg/dL Creatinine 1.15 H (0.52-1.04) mg/dL Calcium 7.5 L (8.4-10.2) mg/dL TIBC (228-460) ug/dL Iron Saturation (12.00-45.00) Troponin I (0.000-0.034) ng/mL Urine Appearance (Clear) Urine Protein (Negative) Urine Blood (Negative) Ur Leukocyte Esterase (Negative) Urine WBC (0-5) /hpf Ur Squamous Epith Cells (0-4) /hpf Urine Bacteria (None) /hpf Hyaline Casts (0-2) /lpf Urine Mucus (None) /hpf Assessment and Plan Assessment: 1. Severe anemia status post 3 units PRBC No obvious bleeding clinically. will check stool for blood Hematology consulted Appears the patient is transfusion dependent but no etiology provided Obtain hemolytic panel Folic acid low, B12 with normal level, MMA pending Iron studies in acceptable range Peripheral smear pending 2. Dementia and progressive weakness with diarrhea On exam patient skin has some hyperpigmentation of her arms Rule out vitamin deficiency in view of dementia diarrhea and dermatitis We'll check B1 and B2 B3 folate B12 B6 copper and zinc levels Check TSH Check RPR Physical/ occupational therapy 3. Elevated troponin Possible type 2 ischemia No significant changes on EKG Patient denies any chest pain Echocardiogram showing some inferior hypokinesis unclear chronicity, severe MR Pleural effusion noted on echo check chest x-ray Cardiology has been consulted Due to high risk of presence of occult bleeding no anticoagulation and antiplatelets for now Continued on statin and beta padmini 4. Chronic diarrhea Check infectious etiology Check stool fat Check zinc level check thiamine level Check nicotinic acid level Check stool for blood Check a small gap Celiac disease serology Negative If all of this above is inconclusive May consider further workup if family interested with colonoscopy and EGD and maybe consider Whipple disease the patient does not have typical neurological findings on exam 5. Elevated creatinine Rule out acute kidney injury Rule out CKD Decreased urine output oliguria Electrolytes and acid bus status stable No overt signs of fluid overloadReceived IV fluids overnight and urine output somewhat increased. Hold IV fluids for now PVR of 370 Nephrology consult 6. Shortness of breath Chronic end stage COPD Restart home prednisone Chest x-ray for possible pleural effusion noted on echocardiogram Rule out pneumonia empyema Swallowing evaluation ordered 7. Physical severe debility Physical occupational therapy Check swallow studies 8. Severe protein calorie malnutrition with failure to thrive and sacral pressure ulcer unstagable Further workup based on the findings of above studies. Overall prognosis is extremely guarded and unfavorable. This is very chronically ill patient with end-stage COPD on chronic prednisone. Very emaciated with severe malnutrition, with pressure ulcers, hypoalbuminemia. I meet with the daughter and the son and informed them of my clinical impression and all the findings. I recommended hospice for the patient. They will speak with their father who is DPOA and likely set up family meeting for Saturday to further discuss this. They were not able to change code status for now. Time with Patient: Greater than 30
[2018-05-31] MEDS: FOLIC ACID 1 MG TAB PO SCH (11:12)
[2018-05-31] MEDS: PRENATAL VIT-IRON-FOLIC ACID 1 EACH CAP PO SCH (11:12)
[2018-05-31] MEDS ORDERED: MULTIVITAMINS, THERA 1 EACH TAB PO SCH (12:00)
--- NOTE | 2018-05-31 14:14 | P.NPCON ---
History of Present Illness - Reason for Consult Consult date: 05/31/18 acute renal failure - Chief Complaint Acute kidney injury - History of Present Illness The patient is an 83 yo F with PMH of emphysema, dementia, chronic anemia (on chronic iron supplementation), breast and cervical ca 15 years ago s/p treatment , chronic tremors, and HLD was brought in to the ED by her family due to lethargy and appearing pale. She is seen in consultation because of acute kidney injury. Creatinine was up at 1.6. She was hydrated and today her creatinine down to 1.15. Supposedly she has become weak and tired and is not eating or drinking much. She is on protein supplements at home. No history of nausea vomiting diarrhea. As per t family, the patient was able to ambulate with some assistance up until a month ago. She then had a gradual decline in her functional status and has essentially been bedbound over the past few weeks (and has developed a sacral ulcer). She previously had mild dementia but has also progressed with worsening mental status and now only oriented to place. Family also noted that the patient appeared paler than usual. They endorsed a long-standing history of anemia and that the patient used to get transfusions every month up until a year ago when she missed some appointments and then lost follow-up. Family noted that the cause of the anemia was never fully realized despite a comprehensive workup. The family otherwise denied the patient endorsing any complaints. The patient noted that she doesn't feel well but was free of active complaints and denied any chest pain, SOB, nausea, vomiting, abdominal pain, or vaginal bleeding. The daughters endorsed chronically black stools which they attributed to the iron supplementation but denied noticing any vaginal bleeding. In the ED, the patient underwent a comprehensive w/u with CBC showing Hgb 4.2, Hct 15.5 and patelets 400. Cr was 1.59, BUN 60, and Troponin 0.056. In the ED the patient received bolus of IVFs and 3 U of pRBCs were ordered. Past Medical History Past Medical History: Cancer Additional Past Medical History / Comment(s): Frequent blood transfusions, chronic anemia, breast ca , right mastectomy History of Any Multi-Drug Resistant Organisms: None Reported Past Surgical History: Breast Surgery Additional Past Surgical History / Comment(s): rt mastectomy Past Anesthesia/Blood Transfusion Reactions: No Reported Reaction Past Psychological History: No Psychological Hx Reported Smoking Status: Never smoker Past Alcohol Use History: None Reported Past Drug Use History: None Reported - Past Family History Father Family Medical History: No Reported History Medications and Allergies Home Medications Medication Instructions Recorded Confirmed Type ALPRAZolam [Xanax] 0.25 mg PO TID 05/29/18 05/29/18 History Aspirin [[place] Aspirin EC] 81 mg PO DAILY 05/29/18 05/29/18 History Atorvastatin [Lipitor] 80 mg PO HS 05/29/18 05/29/18 History Citalopram Hydrobromide 40 mg PO DAILY 05/29/18 05/29/18 History [Citalopram HBr] Diphenox-Atrop 2.5-0.025 mg 1 tab PO TID 05/29/18 05/29/18 History [Lomotil] Donepezil [Aricept] 5 mg PO HS 05/29/18 05/29/18 History Donepezil [Aricept] 10 mg PO HS 05/29/18 05/29/18 History Ipratropium-Albuterol Nebulize 3 ml INHALATION RT-QID PRN 05/29/18 05/29/18 History [Duoneb 0.5 mg-3 mg/3 ml Soln] Isosorbide Mononitrate ER [Imdur] 30 mg PO DAILY 05/29/18 05/29/18 History Lisinopril-Hctz 10-12.5 mg 1 tab PO DAILY 05/29/18 05/29/18 History [Zestoretic 10-12.5] Megestrol [Megace] 40 mg PO BID 05/29/18 05/29/18 History Metoprolol Succinate (ER) [Toprol 25 mg PO DAILY 05/29/18 05/29/18 History Xl] Pantoprazole Sodium [Protonix] 40 mg PO DAILY 05/29/18 05/29/18 History Primidone [Mysoline] 50 mg PO TID 05/29/18 05/29/18 History amLODIPine [Norvasc] 10 mg PO DAILY 05/29/18 05/29/18 History predniSONE 5 mg PO DAILY 05/29/18 05/29/18 History Allergies Allergy/AdvReac Type Severity Reaction Status Date / Time codeine Allergy Unknown Verified 05/29/18 18:27 Physical Exam Vitals: Vital Signs Temp Pulse Resp BP Pulse Ox 05/31/18 08:00 67 16 05/31/18 05:25 97.7 F 67 16 120/57 94 L 05/31/18 00:00 18 05/30/18 20:50 98.7 F 67 18 166/67 100 05/30/18 19:52 16 05/30/18 15:00 98 F 68 16 150/67 100 Intake and Output 05/30/18 05/31/18 05/31/18 22:59 06:59 14:59 Intake Total 580 120 Output Total 100 Balance -100 580 120 Intake: Intake, IV Titration 500 Amount Sodium Chloride 0.45% 1, 500 000 ml @ 75 mls/hr IV . [id number] [facility] Rx#:[id number] Oral 80 120 Output: Urine 100 Other: Voiding Method Diaper Bedpan Bedpan Incontinent Diaper Diaper Incontinent Incontinent # Voids 1 2 On examination she is emaciated cachectic looking female bedbound. HEENT exam no JVP neck is supple no facial asymmetry Lungs are clear to auscultation fair air entry bilaterally Heart sounds are unremarkable no murmur rub gallop Abdomen soft nontender nondistended scaphoid Extremity exam was no edema Neurologically awake alert but continues to just mumble that she wants to go home. Results - Lab Results Most recent lab results Calcium 7.5 mg/dL (8.4-10.2) L 05/31/18 07:23 Phosphorus 4.2 mg/dL (2.5-4.5) 05/30/18 07:17 Magnesium 2.7 mg/dL (1.6-2.3) H 05/30/18 07:17 05/31/18 07:23 05/31/18 07:23 Assessment and Plan Assessment: Impression 1. Acute kidney injury secondary to decreased intake, creatinine improved from 1.6-1.15 after hydration. 2. History of breast and cervical cancer, 3. History of chronic anemia, hemoglobin is 4.2 and came up to 11.1 after transfusion 4. History of COPD, 5. Slow deterioration recently with dementia Recommendation 1. Discussed with her and her daughter. They want to take at home. I agree with that. 2. Discussed with them if they are willing to make her comfort care and seemingly that is where the family is moving but currently they have not decided.
[2018-05-31] MEDS: ATORVASTATIN 80 MG TAB PO SCH (19:30)
[2018-05-31] MEDS: DONEPEZIL 5 MG TAB PO SCH (19:30)
--- NOTE | 2018-06-01 04:54 | XR ---
EXAM: XR Chest, 1 View CLINICAL HISTORY: ITS.REASON XR Reason: Interval change TECHNIQUE: Frontal view of the chest. COMPARISON: 05/30/18 FINDINGS: Mildly progressed bilateral lower lobe interstitial and airspace infiltrate. Small pleural effusions, stable on the left and possibly new on the right. Stable cardiac size. Otherwise relatively stable findings. IMPRESSION: Mild worsening of bilateral interstitial and airspace infiltrates which may represent edema and/or pneumonia. Small bilateral pleural effusions.
[2018-06-01 06:58] LABS: HCT 37.5 % (34.0-46.0); HGB 11.6 gm/dL (11.4-16.0); Hypochromasia Marked; MCH 30.1 pg (25.0-35.0); MCV 97.2 fL (80.0-100.0); Macrocytosis Slight; Mean Platelet Volume 6.9; Platelet Count 320 k/uL (150-450); Poikilocytosis Moderate; RBC 3.86 m/uL (3.80-5.40); RDW 15.9 % (11.5-15.5); WBC 13.6 k/uL (3.8-10.6)
[2018-06-01 07:08] LABS: Calcium 7.8 mg/dL (8.4-10.2); Potassium 4.2 mmol/L (3.5-5.1)
[2018-06-01] MEDS: predniSONE 5 MG TAB PO SCH (08:54)
[2018-06-01] MEDS: METOPROLOL SUCCINATE (ER) 25 MG TAB.ER.24H PO SCH (08:54)
[2018-06-01] MEDS: PRENATAL VIT-IRON-FOLIC ACID 1 EACH CAP PO SCH (12:17)
[2018-06-01] MEDS: FOLIC ACID 1 MG TAB PO SCH (12:17)
--- NOTE | 2018-06-01 12:22 | P.PN ---
Subjective Progress Note Date: 06/01/18 Principal diagnosis: This is an 83-year-old emaciated cachectic depressed female who is seen because of acute kidney injury because of decreased intake and dehydration. She is responding to IV fluids with creatinine coming down to 1.5 from a peak of 1.6. This morning she continues to want to go home and be discharged. Yesterday there was some talk of hospice care. This morning actually she did eat better. Other than this he denies any nausea vomiting diarrhea no fever chills no abdominal pain Her background is that she has history of COPD dementia chronic anemia remote history of breast cancer vital cancer 15 years ago. She was brought in because of weakness tiredness and lack of appetite. Objective - Vital Signs Vital signs: Vital Signs Temp 98.2 F 06/01/18 04:47 Pulse 71 06/01/18 04:47 Resp 18 06/01/18 04:47 BP 147/64 06/01/18 04:47 Pulse Ox 99 06/01/18 04:47 Intake & Output 05/31/18 06/01/18 06/01/18 18:59 06:59 18:59 Intake Total 1800 Output Total 100 Balance 1700 Intake: Intake, IV Titration 600 Amount Sodium Chloride 0.45% 1, 600 000 ml @ 75 mls/hr IV . [id number] [facility] Rx#:[id number] Oral 1200 Output: Urine 100 Other: Voiding Method Bedpan Bedpan Diaper Diaper Incontinent Incontinent # Voids 4 2 # Bowel Movements 1 On examination currently she is emaciated cachectic looking female. HEENT exam no JVP, neck is supple no facial asymmetry Lungs clear to auscultation and percussion Heart sounds are unremarkable for any murmur rub gallop Abdomen soft nontender scaphoid Extremity exam was no edema Neurologically awake alert generalized weakness. - Labs CBC & Chem 7: 06/01/18 06:21 06/01/18 06:21 Labs: Abnormal Lab Results - Last 24 Hours (Table) 05/30/18 05/30/18 05/30/18 Range/Units 07:17 18:06 18:06 WBC (3.8-10.6) k/uL RDW (11.5-15.5) % Haptoglobin 277.0 H (31.2-198.0) mg/dL Chloride (98-107) mmol/L Carbon Dioxide (22-30) mmol/L BUN (7-17) mg/dL Creatinine (0.52-1.04) mg/dL Glucose (74-99) mg/dL Calcium (8.4-10.2) mg/dL Stool Occult Blood Positive H (Negative) Stool Lactoferrin POSITIVE H (NEGATIVE) 06/01/18 06/01/18 Range/Units 06:21 06:21 WBC 13.6 H (3.8-10.6) k/uL RDW 15.9 H (11.5-15.5) % Haptoglobin (31.2-198.0) mg/dL Chloride 121 H (98-107) mmol/L Carbon Dioxide 20 L (22-30) mmol/L BUN 34 H (7-17) mg/dL Creatinine 1.18 H (0.52-1.04) mg/dL Glucose 104 H (74-99) mg/dL Calcium 7.8 L (8.4-10.2) mg/dL Stool Occult Blood (Negative) Stool Lactoferrin (NEGATIVE) Microbiology - Last 24 Hours (Table) 05/30/18 18:06 Stool Culture - Preliminary Stool Assessment and Plan Assessment: Impression 1. Acute kidney injury secondary to decreased intake, creatinine improved from 1.6-1.15 after hydration. 2. Mild degree of non-gap acidosis with bicarb of 20 and gap of 3, secondary to acute kidney injury. Expected to recover. 3. History of breast and cervical cancer, 3. History of chronic anemia, hemoglobin is 4.2 and came up to 11.1 after transfusion 4. History of COPD, 5. Slow deterioration recently with dementia. 6. Echocardiogram shows ejection fraction of 40-45%, cardiomyopathy. Troponin was slightly high at 0.3 possible coronary artery disease. 7. A chest x-ray shows possible congestive heart failure probably is more like she has pneumonia Recommendation 1. Because of concern of CHF we will hold off any aggressive hydration. He can be maintained on by mouth hydration though. If she becomes short of breath we will give her 20 of Lasix and see Regarding the acidosis expected to improve. Given patient's overall state of health, there is no significant benefit to be gained by increasing her medication load unless acidosis worsens
[2018-06-01] MEDS ORDERED: FUROSEMIDE 20 MG TAB PO STA (12:23)
--- NOTE | 2018-06-01 17:00 | P.PN ---
Subjective Progress Note Date: 06/01/18 Principal diagnosis: Weakness Patient is currently resting in bed, no active complaints. Objective - Vital Signs Vital signs: Vital Signs Temp 97.9 F 06/01/18 12:05 Pulse 75 06/01/18 12:05 Resp 16 06/01/18 12:05 BP 166/73 06/01/18 12:05 Pulse Ox 98 06/01/18 12:05 Intake & Output 05/31/18 06/01/18 06/01/18 18:59 06:59 18:59 Intake Total 1800 250 Output Total 100 Balance 1700 250 Intake: Intake, IV Titration 600 Amount Sodium Chloride 0.45% 1, 600 000 ml @ 75 mls/hr IV . [id number] MANUELITO Rx#:[id number] Oral 1200 250 Output: Urine 100 Other: Voiding Method Bedpan Bedpan Bedpan Diaper Diaper Diaper Incontinent Incontinent Incontinent # Voids 4 2 2 # Bowel Movements 1 4 - Exam Vital Signs: I have reviewed the vital signs. GENERAL: Malnourished frail old lady, very frail emaciated no apparent distress , appears tired Eyes: PERRL, extraoculry movements intact, clear conjunctiva Head: : Atraumatic external nose and ears, oropharyngeal mucosa is moist without lesions or exudates Neck: Symmetric, trachea midline, No thyromegaly, no masses or neck vain pulsation, no neck rigidity CVS: +S1/S2, No murmurs or gallops. Peripheral pulses 2+ and equal in all extremities. RESP: Unlabored respiratory effort. Breath sounds are diminished but they are completely absent in the right base few crackles in the left base Abdomen: Bowel sounds present in all 4 quadrants, Soft to palpation, Nontender/ Nondistended, No hepatosplenomegaly, no hernias or masses, no CVA tnderness Musculoskeletal: Extremities w/o deformity, No cyanosis or clubbing, no joint swelling she has sacral ulcer Skin: Warm, Dry. No rashes or lesions skin is with some hyperpigmentation acral Neuro: lace inspector II-XII grossly intact, motor strenght 5/5 i upper and lower extremities appear to be somewhat weaker but no clonus no Babinski DTRs are diminished Psych: She is tired and relatively slow to respond but she is definitely awake and alert and answers questions appropriately nose the month and location - Labs CBC & Chem 7: 06/01/18 06:21 06/01/18 06:21 Labs: Abnormal Lab Results - Last 24 Hours (Table) 05/30/18 05/30/18 06/01/18 Range/Units 18:06 18:06 06:21 WBC 13.6 H (3.8-10.6) k/uL RDW 15.9 H (11.5-15.5) % Chloride (98-107) mmol/L Carbon Dioxide (22-30) mmol/L BUN (7-17) mg/dL Creatinine (0.52-1.04) mg/dL Glucose (74-99) mg/dL Calcium (8.4-10.2) mg/dL Stool Occult Blood Positive H (Negative) Stool Lactoferrin POSITIVE H (NEGATIVE) 06/01/18 Range/Units 06:21 WBC (3.8-10.6) k/uL RDW (11.5-15.5) % Chloride 121 H (98-107) mmol/L Carbon Dioxide 20 L (22-30) mmol/L BUN 34 H (7-17) mg/dL Creatinine 1.18 H (0.52-1.04) mg/dL Glucose 104 H (74-99) mg/dL Calcium 7.8 L (8.4-10.2) mg/dL Stool Occult Blood (Negative) Stool Lactoferrin (NEGATIVE) Microbiology - Last 24 Hours (Table) 05/30/18 18:06 Stool Culture - Preliminary Stool Assessment and Plan Plan: 1. Severe anemia status post 3 units PRBC Hemoglobin up, no obvious bleeding clinically. Stool for blood positive Not sure if family wants aggressive investigation and treatment for this as they 're currently looking into hospice options. 2. Dementia and progressive weakness with diarrhea On exam patient skin has some hyperpigmentation of her arms Rule out vitamin deficiency in view of dementia diarrhea and dermatitis Levels of B1 and B2 B3 folate B12 B6 copper and zinc all pending Check TSH Check RPR Physical/ occupational therapy 3. Elevated troponin Possible type 2 ischemia No significant changes on EKG Patient denies any chest pain Echocardiogram showing some inferior hypokinesis unclear chronicity, EF 40-45%, severe MR Pleural effusion noted on echo check chest x-ray Cardiology has been consulted Due to high risk of presence of occult bleeding no anticoagulation and antiplatelets for now Continued on statin and beta padmini 4. Chronic diarrhea Check infectious etiology Check stool fat Check zinc level check thiamine level Check nicotinic acid level Celiac disease serology Negative If all of this above is inconclusive May consider further workup will be needed if family interested with colonoscopy and EGD 5. Acute kidney injury Rule out CKD Likely secondary to dehydration Initially had low urine output, treated with IV fluids, creatinine improved IV fluids were held due to CHF Nephrology consult 6. Shortness of breath Chronic end stage COPD Restart home prednisone Chest x-ray for possible pleural effusion noted on echocardiogram 7. Physical severe debility Physical occupational therapy Check swallow studies 8. Severe protein calorie malnutrition with failure to thrive and sacral pressure ulcer unstagable Admit to the family today, plan is to the family meeting tomorrow on 06/02/18 at 2 PM. Family is hoping that everyone including the physician will be present at the meeting.
[2018-06-01] MEDS ORDERED: ALPRAZolam 0.25 MG TAB PO STA (17:10)
[2018-06-01] MEDS: ATORVASTATIN 80 MG TAB PO SCH (20:07)
[2018-06-01] MEDS: DONEPEZIL 5 MG TAB PO SCH (20:07)
[2018-06-01] MEDS ORDERED: MELATONIN 5 MG TABLET PO STA (23:43)
[2018-06-02] MEDS ORDERED: METOCLOPRAMIDE 5 MG/ML 2 ML VIAL IVP STA (02:33)
[2018-06-02] MEDS ORDERED: METOCLOPRAMIDE 5 MG/ML 2 ML VIAL ONE (02:40)
[2018-06-02 05:59] VITALS: RESP 16; TEMP 98.1
[2018-06-02 08:01] LABS: HCT 35.7 % (34.0-46.0); HGB 10.7 gm/dL (11.4-16.0); Hypochromasia Marked; MCH 29.9 pg (25.0-35.0); MCV 99.7 fL (80.0-100.0); Macrocytosis Slight; Mean Platelet Volume 6.7; Platelet Count 298 k/uL (150-450); Poikilocytosis Moderate; RBC 3.58 m/uL (3.80-5.40); RDW 15.9 % (11.5-15.5); WBC 12.2 k/uL (3.8-10.6)
[2018-06-02 08:17] LABS: Calcium 7.5 mg/dL (8.4-10.2); Potassium 3.9 mmol/L (3.5-5.1)
[2018-06-02] MEDS: METOPROLOL SUCCINATE (ER) 25 MG TAB.ER.24H PO SCH (09:35)
[2018-06-02] MEDS: predniSONE 5 MG TAB PO SCH (09:35)
--- NOTE | 2018-06-02 11:08 | P.PN ---
Subjective Progress Note Date: 06/02/18 Principal diagnosis: Anemia Patient seen today in follow-up. Secondary to patient's dementia she is not able to provide me with history or course of her hospitalization. Currently patient is being evaluated by speech therapy for food consistencies to avoid aspiration. Patient denies nausea, her back is uncomfortable, denies need to use the bathroom. Objective - Vital Signs Vital signs: Vital Signs Temp 98.1 F 06/02/18 05:00 Pulse 81 06/02/18 05:00 Resp 16 06/02/18 05:00 BP 150/58 06/02/18 05:00 Pulse Ox 100 06/02/18 05:00 Intake & Output 06/01/18 06/02/18 06/02/18 18:59 06:59 18:59 Intake Total 250 590 Balance 250 590 Intake: Oral 250 590 Other: Voiding Method Bedpan Bedpan Bedpan Diaper Diaper Diaper Incontinent Incontinent Incontinent # Voids 2 8 1 # Bowel Movements 4 - Constitutional General appearance: Present: cooperative, no acute distress, thin - EENT Eyes: Present: anicteric sclerae, EOMI - Respiratory Respiratory: bilateral: CTA (Weak inspiratory effort) - Cardiovascular Rhythm: irregularly irregular Heart sounds: normal: S1, S2 - Peripheral edema leg Peripheral Edema: bilateral: Trace - Gastrointestinal General gastrointestinal: Present: normal bowel sounds, soft - Integumentary Integumentary: Present: pale - Musculoskeletal Musculoskeletal: Present: generalized weakness - Labs CBC & Chem 7: 06/02/18 07:00 06/02/18 07:00 Labs: Abnormal Lab Results - Last 24 Hours (Table) 06/02/18 06/02/18 Range/Units 07:00 07:00 WBC 12.2 H (3.8-10.6) k/uL RBC 3.58 L (3.80-5.40) m/uL Hgb 10.7 L (11.4-16.0) gm/dL MCHC 30.0 L (31.0-37.0) g/dL RDW 15.9 H (11.5-15.5) % Chloride 121 H (98-107) mmol/L Carbon Dioxide 19 L (22-30) mmol/L BUN 30 H (7-17) mg/dL Calcium 7.5 L (8.4-10.2) mg/dL Assessment and Plan (1) Anemia Narrative/Plan: Patient is status post transfusion with hemoglobin at 10.7 today. No need for further transfusion today. Resulted workup so far has revealed occult positive stool, no significant nutritional deficiency but, anticipate underlying deficiencies, and chronic renal dysfunction. Other possibilities do include an early MDS, just because of age, or chronic marrow suppression secondary to medications, exacerbated by acute illness. This patient's anemia is certainly multifactorial. From a hematology standpoint though, there is no specific supplementation at this time. Would recommend ongoing monitoring as stated above, as it is expected that deficiencies will become apparent the worse patient's intake is. Patient could possibly benefit from erythropoietin supplementation. No further workup is being recommended at this time by hematology. There is a family meeting pending. We'll will await the results of that prior to scheduling any more procedures or workup. Current Visit: Yes Status: Acute Priority: High Code(s): D64.9 - ANEMIA, UNSPECIFIED SNOMED Code(s): 350624335
[2018-06-02] MEDS: FOLIC ACID 1 MG TAB PO SCH ×2 (12:05→12:19)
[2018-06-02] MEDS: PRENATAL VIT-IRON-FOLIC ACID 1 EACH CAP PO SCH (12:05)
[2018-06-02 12:46] VITALS: BP 157/67
[2018-06-02] MEDS ORDERED: ISOSORBIDE MONONITRATE ER 30 MG TAB.ER.24H PO SCH (13:45)
[2018-06-02] MEDS ORDERED: ASPIRIN 81 MG PO SCH (13:45)
[2018-06-02] MEDS ORDERED: LISINOPRIL 10 MG TAB PO SCH (13:45)
--- NOTE | 2018-06-02 13:52 | P.CRDCN ---
History of Present Illness History of present illness: This is a pleasantly confused 83-year-old female past medical history significant for coronary artery disease, hypertension, dyslipidemia, chronic anemia, COPD, dementia and prior history of breast and cervical cancer. She follows with Dr. Alfaro in the office. We've been asked in consultation secondary to elevated troponin. She was brought into the hospital on Saturday by her family secondary to ALLERGY and lethargy. Upon admission she was found to have a hemoglobin of 4.2. She has undergone transfusion of 3 units of packed red blood cells. Hemoglobin has been stable since repeat this morning 10.7. Troponin on admission 0.056, 0.100 and 0.340. She is seen and examined sitting up in bed in no acute distress. She is somewhat of a poor historian most information is obtained from the medical record. She denies symptoms of chest pain, shortness of breath, dizziness, palpitations, nausea, vomiting or diaphoresis. She is currently on aspiration precautions with head the bed elevated is complaining that she wants to lay down and go to sleep. Per the nursing staff she has been noncontributory with her medical care since admission. There is a plan for a family meeting this afternoon to discuss possible hospice care. She has a known history of coronary artery disease with her most recent catheterization performed in 2012 at which time she underwent stenting of the LAD and OM. She has known disease of the RCA which is being treated medically. This recent echocardiogram obtained in the office March 2018 reveals preserved left ventricular systolic function with ejection fraction 60%, moderate aortic regurgitation and moderate to severe mitral regurgitation. Repeat echocardiogram on this admission reveals ejection fraction 40-45%, basal inferior hypokinesia, severe mitral regurgitation and a large pleural effusion. Laboratory data reviewed, WBC 12.2, hemoglobin 10.7, platelets 298, sodium 142, potassium 3.9, creatinine 0.99. Current cardiac medications include aspirin 81 mg daily, Imdur 30 mg daily, amlodipine 10 mg daily, lisinopril/HCTZ 10/12.5 mg daily, Toprol 25 mg daily and atorvastatin 80 mg daily. Chest x-ray on admission reveals irregular 7 mm nodule in the left upper lobe, CT follow-up recommended. Diffuse interstitial pattern with bilateral consolidation and pleural effusion. Repeat on the sixth reveals mild worsening of bilateral interstitial and airspace infiltrates. At the time of my exam: CONSTITUTIONAL: Denies fever. Denies chills. EYES: Denies blurred vision. Denies vision changes. Denies eye pain. EARS, NOSE, MOUTH & THROAT: Denies headache. Denies sore throat. Denies ear pain. CARDIOVASCULAR: Denies chest pain. Denies shortness of breath. Denies orthopnea. Denies PND. Denies palpitations. RESPIRATORY: Denies cough. GASTROINTESTINAL: Denies abdominal pain. Denies diarrhea. Denies constipation. Denies nausea. Denies vomiting. MUSCULOSKELETAL: Denies myalgias. INTEGUMENTARY: Denies pruitis. Denies rash. NEUROLOGIC: Denies numbness. Denies tingling. Denies weakness. PSYCHIATRIC: Denies anxiety. Denies depression. ENDOCRINE: Denies fatigue. Denies weight change. Denies polydipsia. Denies polyurina. GENITOURINARY: Denies burning, hematuria or urgency with micturation. HEMATOLOGIC: Denies history of anemia. Denies bleeding. GENERAL: This is a 83-year-old female in no apparent distress at the time of my examination. HEENT: Head is atraumatic, normocephalic. Pupils are equal, round. Sclerae anicteric. Conjunctivae are clear. Mucous membranes of the mouth are moist. Neck is supple. There is no jugular venous distention. No carotid bruit is heard. LUNGS: Clear to auscultation no wheezes, rales or rhonchi. No chest wall tenderness is noted on palpation or with deep breathing. HEART: Regular rate and rhythm with systolic ejection murmur at the apex, no rubs or gallops. S1 and S2 heard. Distant heart sounds. ABDOMEN: Soft, nontender. Bowel sounds are heard. No organomegaly noted. EXTREMITIES: No evidence of peripheral edema and no calf tenderness noted. VASCULAR: Radial and dorsalis pedis pulses palpated, no evidence of clubbing. NEUROLOGIC: Patient is awake, alert and oriented. Confused why she is here. ASSESSMENT Severe anemia status post 3 units of packed red blood cell transfusion, resolved. Hgb stable Mra-GG-[id number] myocardial infarction Hypertension History of coronary artery disease COPD Dementia PLAN Optimize medical therapy. Resume imdur and lisinopril. Hold aspirin due to positive occult blood. Recommend GI evaluation. Discussed with her plan of care for maximum medical therapy secondary to acute anemic state. We will continue to follow and make recommendations accordingly. Thank you kindly for this consultation. Nurse Practitioner note has been reviewed, I agree with a documented findings and plan of care. Patient was seen and examined. Past Medical History Past Medical History: Cancer Additional Past Medical History / Comment(s): Frequent blood transfusions, chronic anemia, breast ca , right mastectomy History of Any Multi-Drug Resistant Organisms: None Reported Past Surgical History: Breast Surgery Additional Past Surgical History / Comment(s): rt mastectomy Past Anesthesia/Blood Transfusion Reactions: No Reported Reaction Past Psychological History: No Psychological Hx Reported Smoking Status: Never smoker Past Alcohol Use History: None Reported Past Drug Use History: None Reported - Past Family History Father Family Medical History: No Reported History Medications and Allergies Home Medications Medication Instructions Recorded Confirmed Type ALPRAZolam [Xanax] 0.25 mg PO TID 05/29/18 05/29/18 History Aspirin [[place] Aspirin EC] 81 mg PO DAILY 05/29/18 05/29/18 History Atorvastatin [Lipitor] 80 mg PO HS 05/29/18 05/29/18 History Citalopram Hydrobromide 40 mg PO DAILY 05/29/18 05/29/18 History [Citalopram HBr] Diphenox-Atrop 2.5-0.025 mg 1 tab PO TID 05/29/18 05/29/18 History [Lomotil] Donepezil [Aricept] 5 mg PO HS 05/29/18 05/29/18 History Donepezil [Aricept] 10 mg PO HS 05/29/18 05/29/18 History Ipratropium-Albuterol Nebulize 3 ml INHALATION RT-QID PRN 05/29/18 05/29/18 History [Duoneb 0.5 mg-3 mg/3 ml Soln] Isosorbide Mononitrate ER [Imdur] 30 mg PO DAILY 05/29/18 05/29/18 History Lisinopril-Hctz 10-12.5 mg 1 tab PO DAILY 05/29/18 05/29/18 History [Zestoretic 10-12.5] Megestrol [Megace] 40 mg PO BID 05/29/18 05/29/18 History Metoprolol Succinate (ER) [Toprol 25 mg PO DAILY 05/29/18 05/29/18 History Xl] Pantoprazole Sodium [Protonix] 40 mg PO DAILY 05/29/18 05/29/18 History Primidone [Mysoline] 50 mg PO TID 05/29/18 05/29/18 History amLODIPine [Norvasc] 10 mg PO DAILY 05/29/18 05/29/18 History predniSONE 5 mg PO DAILY 05/29/18 05/29/18 History Allergies Allergy/AdvReac Type Severity Reaction Status Date / Time codeine Allergy Unknown Verified 05/29/18 18:27 Physical Exam Vitals: Vital Signs Temp Pulse Resp BP Pulse Ox 06/02/18 05:00 98.1 F 81 16 150/58 100 06/01/18 21:00 98.2 F 75 20 168/67 90 L 06/01/18 12:05 97.9 F 75 16 166/73 98 Intake and Output 06/01/18 06/02/18 06/02/18 22:59 06:59 14:59 Intake Total 590 Balance 590 Intake: Oral 590 Other: Voiding Method Bedpan Diaper Incontinent # Voids 3 8 1 Results 06/02/18 07:00 06/02/18 07:00 CBC 06/02/18 Range/Units 07:00 WBC 12.2 H (3.8-10.6) k/uL RBC 3.58 L (3.80-5.40) m/uL Hgb 10.7 L (11.4-16.0) gm/dL Hct 35.7 (34.0-46.0) % Plt Count 298 (150-450) k/uL Comprehensive Metabolic Panel 06/02/18 Range/Units 07:00 Sodium 142 (137-145) mmol/L Potassium 3.9 (3.5-5.1) mmol/L Chloride 121 H (98-107) mmol/L Carbon Dioxide 19 L (22-30) mmol/L BUN 30 H (7-17) mg/dL Creatinine 0.99 (0.52-1.04) mg/dL Glucose 98 (74-99) mg/dL Calcium 7.5 L (8.4-10.2) mg/dL Current Medications Generic Name Dose Route Start Last Admin Trade Name Freq PRN Reason Stop Dose Admin Atorvastatin Calcium 80 mg 05/30/18 21:00 06/01/18 20:07 Lipitor PO 80 mg HS MANUELITO Administration Diphenoxylate HCl/Atropine 1 each 05/30/18 14:36 Lomotil PO TID PRN Diarrhea Donepezil HCl 5 mg 05/30/18 21:00 06/01/18 20:07 Aricept PO 5 mg HS MANUELITO Administration Folic Acid 4 mg 05/31/18 12:00 06/01/18 12:17 Folic Acid PO 4 mg DAILY@1200 MANUELITO Administration Metoprolol Succinate 25 mg 05/31/18 09:00 06/02/18 09:35 Toprol Xl PO 25 mg DAILY MANUELITO Administration Multivi/Iron Carb/Fe Sulf/FA/Prenat 1 each 05/31/18 12:00 06/01/18 12:17 -U Capsule PO 1 each DAILY@1200 MANUELITO Administration Prednisone 5 mg 05/30/18 14:45 06/02/18 09:35 PO 5 mg DAILY MANUELITO Administration Intake and Output 06/01/18 06/02/18 06/02/18 22:59 06:59 14:59 Intake Total 590 Balance 590 Intake: Oral 590 Other: Voiding Method Bedpan Diaper Incontinent # Voids 3 8 1 06/02/18 07:00 06/02/18 07:00
[2018-06-02 17:17] VITALS: PULSE 86
--- NOTE | 2018-06-03 05:50 | DS ---
DISCHARGE SUMMARY DATE OF ADMISSION: 05/29/2018 DATE OF DISCHARGE: 06/02/2018 FINAL DIAGNOSES: 1. Chronic end-stage chronic obstructive pulmonary disease. 2. Severe medical debility. 3. Acute kidney injury, prerenal. 4. Normocytic anemia possibly myelodysplastic syndrome. 5. Metabolic acidosis. 6. Troponin leak, not acute coronary syndrome probably from hemodynamic mismatch. 7. Mild to moderate cognitive impairment possibly from late onset Alzheimer's dementia. CONSULTATION: Dr. Carranza from Oncology, Dr. Robert from Nephrology, Dr. Edvin Locke from Cardiology. HOSPITAL COURSE: This patient presented through the ER with prior history of breast and cervical cancer, gradually going downhill. The patient was able to walk with some assistance a month ago and continued to go further downhill and dementia has also been progressing. The patient was transfused blood. Received a total of 3 units of blood here. Hemoglobin now was 10.7. Seen by Hematology, felt this could be possibly myelodysplastic syndrome. Oral intake has remained poor. There was a question also about patient aspirating. The patient will need a more formal study evaluation. The patient also had a 2-D echocardiogram. Echocardiogram did show some hypokinetic wall and moderate to severe mitral regurgitation, EF of 40% to 45%, also showed moderate to severe aortic regurgitation. Oral intake was minimum. The patient is very keen to go home. Meeting was held today. ADVANCED CARE PLANNING: Meeting was held with the patient's , 3 daughters and the patient present. Overall, patient's prognosis is not good and the patient has been failing, appetite has continued to failed, overall functional capacity was going down. Given the quality of life, the patient's family was keen to move ahead with hospice and this will be done with [facility]. No artificial feeding will be done since there is a concern about aspiration. It was discussed the feeding will be only be comfort feeding. Most of the medications were discontinued. [facility] came and I also discussed with them. All questions were answered. More than 35 minutes were spent on this aspect of the case. PHYSICAL EXAMINATION: On examination, temperature 98.1, pulse 82, respiration 16, blood pressure 157/67, pulse ox 97% on 3 L. LABS: White count 12.2, hemoglobin 10.7, BUN 30, creatinine 0.99. DISCHARGE MEDICATIONS: 1. DuoNeb q.i.d. p.r.n. 2. Imdur ER 30 mg a day. 3. Toprol XL 25 mg a day. 4. Mysoline 50 mg t.i.d. 5. Norvasc 10 mg a day. 6. Ativan 0.5 q.6 p.r.n. for anxiety. 7. Roxanol 5 mg q.4 p.r.n. 8. Scopolamine patch q.72 hours p.r.n. DISPOSITION: Home with [facility]. Follow up with Dr. Saul. MAPS review and form was filled out with the patient's family. MMODL / IJN: [id number] /
[2018-06-03 06:28] LABS: Methylmalonic Acid 0.38 umol/L (<0.40)
[2018-06-04 07:09] LABS: Nicotinuric Acid None Detected
== END 2018-06-02 19:15 | disposition hospice, home (50) | DRG 811 ==
LOC: EC 17:50 → 3NMEDONC 19:09
PROVIDERS: ADMIT Hospitalist; ATTEND Hospitalist
PROC: 30233N1 Transfusion of Nonautologous Red Blood Cells into Peripheral Vein, Percutaneous Approach (ICD-10-PCS; principal; 2018-05-29)
DX: D53.9 Nutritional anemia, unspecified (principal); E43 Unspecified severe protein-calorie malnutrition; N17.9 Acute kidney failure, unspecified; R64 Cachexia; J90 Pleural effusion, not elsewhere classified; I42.9 Cardiomyopathy, unspecified; E87.2 Acidosis; I24.8 Other forms of acute ischemic heart disease; Z68.1 Body mass index [BMI] 19.9 or less, adult; L89.150 Pressure ulcer of sacral region, unstageable; G30.1 Alzheimer's disease with late onset; F02.80 Dementia in other diseases classified elsewhere, unspecified severity, without behavioral disturbance, psychotic disturbance, mood disturbance, and anxiety; Z51.5 Encounter for palliative care; E86.0 Dehydration; D46.9 Myelodysplastic syndrome, unspecified; J43.9 Emphysema, unspecified; I08.0 Rheumatic disorders of both mitral and aortic valves; K52.9 Noninfective gastroenteritis and colitis, unspecified; I12.9 Hypertensive chronic kidney disease with stage 1 through stage 4 chronic kidney disease, or unspecified chronic kidney disease; N18.9 Chronic kidney disease, unspecified; R32 Unspecified urinary incontinence; I25.10 Atherosclerotic heart disease of native coronary artery without angina pectoris; E78.5 Hyperlipidemia, unspecified; R25.1 Tremor, unspecified; L85.9 Epidermal thickening, unspecified; L91.9 Hypertrophic disorder of the skin, unspecified; R62.7 Adult failure to thrive; Z90.11 Acquired absence of right breast and nipple; Z79.82 Long term (current) use of aspirin; Z79.818 Long term (current) use of other agents affecting estrogen receptors and estrogen levels; Z79.52 Long term (current) use of systemic steroids; Z79.899 Other long term (current) drug therapy; Z88.5 Allergy status to narcotic agent; Z85.3 Personal history of malignant neoplasm of breast; Z85.41 Personal history of malignant neoplasm of cervix uteri; Z74.01 Bed confinement status; Z95.5 Presence of coronary angioplasty implant and graft
CPT/HCPCS: 36415; 71045; 80048; 80053; 81001; 82272; 82550; 82553; 82607; 82705; 82728; 82746; 83010; 83516; 83540; 83550; 83605; 83625; 83630; 83690; 83735; 83921; 84100; 84207; 84425; 84484; 84591; 85025; 85027; 85045; 85610; 85730; 86850; 86870; 86880; 86900; 86901; 86902; 86920; 87045; 87046; 93005; 93306; 96360; 96361; 99285